=== PATIENT | male | born 1940 | race Caucasian/White ===

== ENCOUNTER 2023-09-10 14:33 | Inpatient (IN) ==
[2023-09-10] MEDS ORDERED: SODIUM CHLORIDE 1,000 ML IV STA (14:43)
--- NOTE | 2023-09-10 14:53 | ED.PDOC ---
General ED Provider: Dr. ORAL HERNANDEZ MD Chief Complaint: Altered Mental Status Stated Complaint: Decreased responsiveness, tremulous 83-year-old male presents emergency department for evaluation of altered mental status, shakiness. Patient resides in a long-term. custodial staff states that he started having uncontrollable movements earlier today. They called his primary provider who advised that they bring him to the ER for further evaluation. Patient was evaluated today for possible UTI. Was found to have leukocyte esterase and nitrite positive urinalysis with hematuria. In the interim the patient had decreased responsiveness and seem to be agitated. Apparently at baseline he is able to help stand for transfers and move about but apparently has dementia. At current time patient is unable to contribute to history. Time Seen by Provider: 09/10/23 14:36 Mode of Arrival: Ambulance Information Source: EMT Exam Limitations: Clinical condition and Altered mental status Primary Care Provider: EMMY FORBES Seen Within Last 72 Hours for Same Complaint By: PCP Nursing and Triage Documentation Reviewed and Agree: Yes Neurological Complaint Exam Altered Mental Status Complaint/Exam Current Mental Status: Agitation Onset: Gradual Symptoms Are: Still present Timing: Constant Initial Severity: Moderate Current Severity: Severe Eye Deviation Present: No Character: Reports Agitation Aggravating: Reports None Alleviating: Reports None Gag Reflex Present: Yes Focal Weakness: Present None Focal Sensory Loss: Present None Review of Systems Review Of Systems Constitutional: Reports Chills, Fever, Malaise and Weakness GI: Reports Abdominal pain : Reports Hematuria All Other Systems: Reviewed and Negative [facility] Medical History (Updated 09/10/23 @ 16:42 by ORAL HERNANDEZ MD) Hyperlipidemia E78.5 - Hyperlipidemia, unspecified (ICD-10) Atrial fibrillation I48.91 - Unspecified atrial fibrillation (ICD-10) Radiculopathy, cervical region M54.12 - Radiculopathy, cervical region (ICD-10) Social History Smoking and tobacco status: Former smoker Physical Exam Physical Exam Appearance: Reports Thin Ill-appearing: Moderate Pain Distress: Moderate Eyes: Reports EOMI ENT: Reports Dry mucosa Neck: Supple Respiratory: Reports Airway patent and Breath sounds clear Cardiovascular: Reports RRR and Pulses normal GI/: Reports Soft and Tender (generalized) Musculoskeletal: Reports ROM intact and No edema Skin: Reports Warm, Dry and Normal color Neurological: Reports Motor intact, Disoriented and Alert to pain Psychiatric: Reports Not Examined Interpretation EKG Interpretation EKG Interpretation By: ED Physician Time of EKG #1: 14:44 Rate: Normal Rhythm: Sinus Ectopy: None [place]: Left Interpretation: Difficult to obtain secondary to noisy baseline due to tremor Critical Care Note Critical Care Note Total Critical Care Time (mins): 35 Course Course 09/10/23 15:00 09/10/23 15:00 Orders, Labs, Meds: Lab Review 09/10/23 09/10/23 14:41 15:00 WBC 6.76 RBC 3.63 L Hgb 9.9 L Hct 31.1 L MCV 85.7 MCH 27.3 MCHC 31.8 RDW Coeff of [place] 14.2 Plt Count 318 Immature Gran % (Auto) 0.6 Neut % (Auto) 75.1 Lymph % (Auto) 15.8 [place] % (Auto) 8.1 Eos % (Auto) 0.1 Baso % (Auto) 0.3 Neut # (Auto) 5.1 Lymph # (Auto) 1.1 [place] # (Auto) 0.6 Eos # (Auto) 0.0 Baso # (Auto) 0.0 Immature Gran # (Auto) 0.0 Sodium 138.3 Potassium 3.34 L Chloride 106.0 Carbon Dioxide 27.4 Anion Gap 8.24 BUN 19.7 Creatinine 1.28 H Estimated GFR (MDRD) 53.00 BUN/Creatinine Ratio 15.39 Glucose 167.1 H Lactic Acid 1.26 Calcium 7.73 L Total Bilirubin 0.40 AST 29.0 ALT 26.5 Alkaline Phosphatase 50.4 L Troponin I 0.026 Total Protein 6.61 Albumin 3.32 L Globulin 3.29 Albumin/Globulin Ratio 1.00 Procalcitonin 0.16 H SARS CoV-2 RNA Rapid REYNALDO Negative Orders Category Date Time Status ADMIT OBSERVATION [PLACE PATIENT OBSERVATION] .TO ADMISSION 09/10/23 16:38 Active MEDSURG (NON-MONITORED BED) EKG-(ED ONLY) Stat CARDIO 09/10/23 14:41 Completed ED IV/MEDIPORT/POWERPORT .ONCE EMERGENCY 09/10/23 14:41 Active BLOOD CULTURE (ED ONLY) Stat LAB 09/10/23 15:06 Received CBC W/ AUTO DIFF Stat LAB 09/10/23 15:00 Completed CMP [COMPREHENSIVE METABOLIC PANEL] Stat LAB 09/10/23 15:00 Completed LACTIC ACID Stat LAB 09/10/23 15:00 Completed PROCALCITONIN Stat LAB 09/10/23 15:00 Completed SARS COV-2 RNA RAPID REYNALDO Stat LAB 09/10/23 14:41 Completed TROPONIN I Stat LAB 09/10/23 15:00 Completed UA [URINALYSIS C & S IF INDICATED] Stat LAB 09/10/23 14:41 Uncollected 0.9 % Sodium Chloride [Saline Flush] Meds 09/10/23 14:41 Active 1 syr IVF PRN PRN Acetaminophen [Tylenol] Meds 09/10/23 14:57 Discontinued 650 mg RC ONCE ONE Piperacillin Sodium/Tazobactam [Zosyn 3.375 gm] 3.375 Meds 09/10/23 15:38 Discontinued gm 0.9 % Sodium Chloride [Sodium Chloride 100Ml] 100 ml IV ONCE Sodium Chloride 0.9% [Sodium Chloride] 1,000 ml Meds 09/10/23 14:43 Discontinued IV BOLUS CHEST, 1V AP ONLY Stat RADS 09/10/23 14:[address] ABDOMEN/PELVIS WO CONTRAST Stat RADS 09/10/23 14:43 Completed Medications Generic Name Dose Route Start Last Admin Trade Name Freq PRN Reason Stop Dose Admin Sodium Chloride 1 syr 09/10/23 14:41 0.9% Sodium Chloride 10 Ml Disp.Syrin IVF PRN PRN To flush IV Discontinued Medications Generic Name Dose Route Start Last Admin Trade Name Freq PRN Reason Stop Dose Admin Acetaminophen 650 mg 09/10/23 14:57 09/10/23 15:21 Acetaminophen 650 Mg Supp.Rect RC 09/10/23 14:58 650 mg ONCE ONE Administration Sodium Chloride 1,000 mls @ 1,000 mls/hr 09/10/23 14:43 09/10/23 15:27 Sodium Chloride IV 09/10/23 15:42 Infused BOLUS STA Infusion Piperacillin Sod/Tazobactam 100 mls @ 200 mls/hr 09/10/23 15:38 09/10/23 16:19 Sod 3.375 gm/ Sodium Chloride IV 09/10/23 16:07 200 mls/hr ONCE ONE Administration Vital Signs: Temp Pulse Resp BP Pulse Ox 09/10/23 14:40 100.5 F H 88 22 H 109/63 97 Discharge Plan Discharge Patient Disposition: PLACED OBSERVATION Discharge Problem: Altered mental status, Acute metabolic encephalopathy, Acute UTI Did you review [place] [employer] for ALL controlled substances?: Not Applicable ED Provider: ORAL HERNANDEZ Physician Progress Note: 3:38 PM Patient had urinalysis performed today as an outpatient that showed leukocyte esterase, nitrite positive pyuria. Suspect that that could be contributing to some of his altered mental status and tremors. We will give a fluid bolus and start Zosyn. Current laboratory evaluation shows no leukocytosis, normal lactic acid. Remainder of labs pending. 4:[address] scan shows bladder wall thickening, bilateral hydronephrosis without evidence of ureterolithiasis. He does have emphysematous changes in the bladder. We did speak with the long-term staff to confirm that the patient did have straight catheterization to obtain the urinalysis earlier today. Suspect that that is the reason for his symptoms. However cannot exclude emphysematous cystitis. Given that he is still encephalopathic, we will admit to the hospital for further management. Patient was given IV fluids and Zosyn in the ER. Case discussed with hospitalist team and they accept admission for observation at this time. Will reassess tomorrow.
[2023-09-10] MEDS ORDERED: TYLENOL RC ONE (14:57)
[2023-09-10 15:10] LABS: BASOPHILS % (AUTO) 0.3 % (0.0-3.0); EOSINOPHILS % (AUTO) 0.1 % (0.0-7.0); HEMATOCRIT 31.1 % (42.0-52.0); HEMOGLOBIN 9.9 g/dl (14.0-18.0); IMMATURE GRANULOCYTE % (AUTO) 0.6 % (0.0-5.0); LYMPHOCYTES # (AUTO) 1.1 K/uL (0.60-3.4); LYMPHOCYTES % (AUTO) 15.8 (10.0-50.0); MEAN CORPUSCULAR HEMOGLOBIN 27.3 pg (27.0-31.0); MEAN CORPUSCULAR HGB CONC 31.8 (31.8-35.4); MEAN CORPUSCULAR VOLUME 85.7 fl (80.0-94.0); MONOCYTES # (AUTO) 0.6 K/uL (0.4-2.0); MONOCYTES % (AUTO) 8.1 (0-10); NEUTROPHILS # (AUTO) 5.1 K/ul (2.0-6.9); NEUTROPHILS % (AUTO) 75.1 % (42.2-75.2); PLATELET COUNT 318 10^3/uL (140-440); RDW COEFFICIENT OF VARIATION 14.2 % (11.6-14.8); RED BLOOD COUNT 3.63 10^6/ul (4.70-6.10); WHITE BLOOD COUNT 6.76 K/ul (4.2-10.2)
[2023-09-10 15:23] LABS: ALANINE AMINOTRANSFERASE 26.5 U/L (0-50); ALBUMIN 3.32 g/dL (3.5-5.0); ALKALINE PHOSPHATASE 50.4 U/L (56-119); BILIRUBIN,TOTAL 0.4 mg/dL (0.2-1.3); BLOOD UREA NITROGEN 19.7 mg/dL (9-20); CALCIUM 7.73 mg/dL (8.4-10.2); CARBON DIOXIDE 27.4 mmol/L (22-30.0); CREATININE 1.28 mg/dL (0.60-1.10); GLUCOSE 167.1 mg/dL (74-106); POTASSIUM 3.34 mmol/L (3.5-5.1); SODIUM 138.3 mmol/L (134.5-145); TOTAL PROTEIN 6.61 g/dL (6.3-8.2)
[2023-09-10 15:34] LABS: TROPONIN I 0.026 ng/ml (0.0000-0.120)
[2023-09-10] MEDS ORDERED: ZOSYN 3.375 GM 3.375 GM in SODIUM CHLORIDE 100ML 100 ML IV ONE (15:38)
[2023-09-10 16:12] LABS: SARS COV-2 RNA RAPID NAAT NEGATIVE (NEGATIVE)
--- NOTE | 2023-09-10 16:22 | DI ---
EXAM: CHEST RADIOGRAPH TECHNIQUE: Single frontal chest radiograph. COMPARISON: 07/10/2023 HISTORY: Altered mental status FINDINGS: The heart and mediastinum are stable. The lungs and pleural spaces are unchanged. No pneumothorax. No acute abnormality of the bones or soft tissues is identified. Status post right shoulder arthropla sty. IMPRESSION: No evidence of acute disease.
--- NOTE | 2023-09-10 16:28 | CT ---
EXAM: CT ABDOMEN AND PELVIS WITHOUT CONTRAST HISTORY: Abdominal and pelvic pain. TECHNIQUE: CT acquisition of the abdomen and pelvis from the lower thorax through the pelvis without IV contrast administration. 2-D coronal and sagittal reformatted images were obtained from the axial source images. Oral Contrast: None. CT Dose Reduction Techniques Performed: Yes. COMPARISON: None. FINDINGS: Lower Thorax: There is cardiomegaly. Liver: No mass. Normal morphology. Biliary: There has been cholecystectomy. Pancreas: No mass or evidence of pancreatitis. No duct dilation. Spleen: No mass. No splenomegaly. Adrenals: No mass. Kidneys/Ureters: There is moderate bilateral hydronephrosis. The ureters are dilated to the level of the urinary bladder. No stone or mass. GI Tract: No bowel dilation. No bowel wall thickening. Peritoneal Cavity: No ascites. Retroperitoneum: No mass or fluid collection. Lymph Nodes: No lymphadenopathy. Vasculature: No aortic or iliac aneurysm within limitations of noncontrast examination. Pelvis: The urinary bladder is thick-walled and trabeculated as well as moderately distended. There are small foci of gas superiorly and anteriorly. Difficult determine if these are within the urinary bladder wall or within the lumen from previous instrumentation. Normal appearance of the prostate. Bones/Soft Tissues: There has been previous posterior lumbar fixation surgery with interbody spacers. Visualized soft tissues are within normal limits. IMPRESSION: 1. Moderate bilateral hydroureternephrosis probably secondary to downstream abnormality involving th e urinary bladder. There is diffuse urinary bladder wall thickening with foci of gas in the anterior bladder wall. Correlate for recent instrumentation. The possibility of early emphysematous cystiti s cannot be excluded. All CT scans are performed using dose optimization techniques as appropriate to the performed exam an d include at least one of the following: Automated exposure control, adjustment of the mA and/or kV according t o size, and the use of iterative reconstruction technique.
[2023-09-10] MEDS ORDERED: TYLENOL PO PRN (16:54)
[2023-09-10] MEDS: SODIUM CHLORIDE 1,000 ML IV SCH (17:38)
[2023-09-10] MEDS ORDERED: MORPHINE 2 MG/ML SYRINGE IVP ONE (17:41)
[2023-09-10 17:48] VITALS: BMI 19.8
[2023-09-10] MEDS ORDERED: MORPHINE 2 MG/ML SYRINGE IVP PRN (18:44)
[2023-09-10] MEDS ORDERED: ZOFRAN 4 MG/2 ML IVP PRN (20:56)
[2023-09-10] MEDS: MORPHINE 2 MG/ML SYRINGE IVP PRN (21:51)
[2023-09-11] MEDS: MORPHINE 2 MG/ML SYRINGE IVP PRN ×5 (02:00→18:00)
[2023-09-11] MEDS: SODIUM CHLORIDE 1,000 ML IV SCH ×3 (02:27→22:53)
[2023-09-11 05:25] LABS: BASOPHILS % (AUTO) 0.2 % (0.0-3.0); HEMATOCRIT 31.9 % (42.0-52.0); HEMOGLOBIN 10.1 g/dl (14.0-18.0); IMMATURE GRANULOCYTE % (AUTO) 0.5 % (0.0-5.0); LYMPHOCYTES # (AUTO) 1.5 K/uL (0.60-3.4); MEAN CORPUSCULAR HEMOGLOBIN 27.1 pg (27.0-31.0); MEAN CORPUSCULAR HGB CONC 31.7 (31.8-35.4); MEAN CORPUSCULAR VOLUME 85.5 fl (80.0-94.0); MONOCYTES # (AUTO) 0.6 K/uL (0.4-2.0); MONOCYTES % (AUTO) 6.5 (0-10); NEUTROPHILS # (AUTO) 6.3 K/ul (2.0-6.9); NEUTROPHILS % (AUTO) 74.8 % (42.2-75.2); PLATELET COUNT 292 10^3/uL (140-440); RDW COEFFICIENT OF VARIATION 14.6 % (11.6-14.8); RED BLOOD COUNT 3.73 10^6/ul (4.70-6.10); WHITE BLOOD COUNT 8.44 K/ul (4.2-10.2)
[2023-09-11 05:44] LABS: ALANINE AMINOTRANSFERASE 29.4 U/L (0-50); ALBUMIN 3.59 g/dL (3.5-5.0); ALKALINE PHOSPHATASE 53.8 U/L (56-119); ASPARTATE AMINO TRANSFERASE 37.7 U/L (17-59); BILIRUBIN,TOTAL 0.69 mg/dL (0.2-1.3); BLOOD UREA NITROGEN 17.3 mg/dL (9-20); CALCIUM 8.16 mg/dL (8.4-10.2); CARBON DIOXIDE 25.7 mmol/L (22-30.0); CHLORIDE 110.9 mmol/L (98-107); CREATININE 1.22 mg/dL (0.60-1.10); GLUCOSE 126.2 mg/dL (74-106); POTASSIUM 3.18 mmol/L (3.5-5.1); SODIUM 142.9 mmol/L (134.5-145); TOTAL PROTEIN 7.12 g/dL (6.3-8.2)
[2023-09-11] MEDS: ROCEPHIN 1 GM/50 ML D5W 1 GM/50 ML BAG IV SCH (08:12)
[2023-09-11] MEDS ORDERED: POTASSIUM CHLORIDE 20 MEQ/100 ML PREMIX 40 MEQ/200 ML BAG IV ONE (08:18)
[2023-09-11] MEDS: ACETAMINOPHEN 1,000 MG/100 ML BAG IV PRN ×2 (09:06→18:06)
--- NOTE | 2023-09-11 10:40 | RS.OTCNOTE ---
OT Case Note Date of Note: 09/11/23 Title: OT Case Note Note: OT advised by Hospitalist to wait until tomorrow for consult.
--- NOTE | 2023-09-11 11:22 | PCM ---
Date of Service Date Seen by Provider: 09/11/23 Time Seen by Provider: 08:40 Admit Day/Time Admission Date: 09/10/23 Reason for Admission Chief Complaint: UTI, encephalopathy Hospital Provider Hospital Provider: STEVEN CUTLER, [facility] [place] Primary Care Physician Primary Care Physician: EMMY FORBES History of Present Illness History of Present Illness: 83 yo male presented to the ER by EMS from [facility] for AMS. Patient has baseline dementia and is unable to provide HPI or ROS. ER provider reports that nursing staff at the facility reported patient has been agitated and not hisself throughout the day. He was catheterized for a urinalysis but did not have the results back at that time. UA here revealed significant UTI. Patient also febrile at 101. Case Discussed With Case Discussed With: Patient's case was discussed with the ER Physicians, Dr. Peguero. [facility] Medical History Altered mental status, unspecified R41.82 - Altered mental status, unspecified (ICD-10) Repeated falls R29.6 - Repeated falls (ICD-10) Unspecified osteoarthritis, unspecified site M19.90 - Unspecified osteoarthritis, unspecified site (ICD-10) Gastro-esophageal reflux disease without esophagitis K21.9 - Gastro-esophageal reflux disease without esophagitis (ICD-10) Essential (primary) hypertension I10 - Essential (primary) hypertension (ICD-10) Cognitive communication deficit R41.841 - Cognitive communication deficit (ICD-10) Major depressive disorder F32.9 - Major depressive disorder, single episode, unspecified (ICD-10) Chronic systolic (congestive) heart failure I50.22 - Chronic systolic (congestive) heart failure (ICD-10) Chronic obstructive pulmonary disease J44.9 - Chronic obstructive pulmonary disease, unspecified (ICD-10) Retention of urine, unspecified R33.9 - Retention of urine, unspecified (ICD-10) Right temporomandibular joint disorder, 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 - Right temporomandibular joint disorder, unspecified (ICD-10) Irritable bowel syndrome without diarrhea K58.9 - Irritable bowel syndrome without diarrhea (ICD-10) Deviated nasal septum J34.2 - Deviated nasal septum (ICD-10) Impulsiveness R45.87 - Impulsiveness (ICD-10) Obstructive and reflux uropathy N13.9 - Obstructive and reflux uropathy, unspecified (ICD-10) 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 - Atherosclerotic heart disease of [place] coronary artery without angina pectoris (ICD-10) Nonrheumatic mitral (valve) insufficiency I34.0 - Nonrheumatic mitral (valve) insufficiency (ICD-10) Unspecified dementia, severe, with agitation F03.C11 - Unspecified dementia, severe, with agitation (ICD-10) Type 2 diabetes mellitus E11.9 - Type 2 diabetes mellitus without complications (ICD-10) Panlobular emphysema J43.1 - Panlobular emphysema (ICD-10) Hyperlipidemia E78.5 - Hyperlipidemia, unspecified (ICD-10) Atrial fibrillation I48.91 - Unspecified atrial fibrillation (ICD-10) Radiculopathy, cervical region M54.12 - Radiculopathy, cervical region (ICD-10) Surgical History Hx of cervical spine surgery Z98.890 - Other specified postprocedural states (ICD-10) H/O shoulder surgery Z98.890 - Other specified postprocedural states (ICD-10) Hx of mitral valve repair Z98.890 - Other specified postprocedural states (ICD-10) Family History Mother CHF (congestive heart failure) Social History Smoking and tobacco status: Former smoker Alcohol intake: former Allergies Allergies Allergy/AdvReac Type Severity Reaction Status Date / Time codeine AdvReac Verified 09/10/23 15:00 lidocaine AdvReac Verified 09/10/23 15:00 paraben AdvReac Verified 09/10/23 15:00 bleach AdvReac Uncoded 09/10/23 15:00 Current Medications Home Medications amiodarone 200 mg tablet 200 mg PO DAILY 07/10/23 [History Confirmed 09/10/23 Last Taken Unknown] apixaban 2.5 mg tablet (Eliquis) 5 mg PO BID 07/10/23 [History Confirmed 09/10/23 Last Taken Unknown] atorvastatin 10 mg tablet 10 mg PO DAILY 07/10/23 [History Confirmed 09/10/23 Last Taken Unknown] metoprolol succinate 50 mg tablet,extended release 24 hr 50 mg PO DAILY 07/10/23 [History Confirmed 09/10/23 Last Taken Unknown] pantoprazole 40 mg tablet,delayed release 40 mg PO QAM 07/10/23 [History Confirmed 09/10/23 Last Taken Unknown] oxycodone-acetaminophen 10 mg-325 mg tablet 1 tab PO TID PRN neck pain #90 tabs 08/04/23 [Rx Confirmed 09/10/23 Last Taken Unknown] buspirone 10 mg tablet 10 mg PO BID 09/10/23 [History Confirmed 09/10/23 Last Taken Unknown] dupilumab 300 mg/2 mL subcutaneous pen injector (FRM Study [employer]) 300 mg subcut DAILY 09/10/23 [History Confirmed 09/10/23 Last Taken Unknown] menthol 0.44 %-zinc oxide 20.6 % topical ointment (CalaSoothe) 1 applic topical 3-4XD PRN excoriation 09/10/23 [History Confirmed 09/10/23 Last Taken Unknown] nitroglycerin 0.4 mg sublingual tablet 0.4 mg sublingual Q5-15M PRN chest pain 09/10/23 [History Confirmed 09/10/23 Last Taken Unknown] Home Acetaminophen (Acetaminophen 325 Mg Tablet) 650 mg PO Q4H PRN PRN Reason: Mild Pain Sodium Chloride (Sodium Chloride) 1,000 mls @ 100 mls/hr IV .Q10H ROBBIE Last Admin: 09/11/23 02:27 Dose: 100 mls/hr CEFTRIAXONE/D5W 1 GM PREMIX (Rocephin 1 Gm/50 Ml D5w) 1 gm in 50 mls @ 100 mls/hr IV DAILY ROBBIE Stop: 09/14/23 08:59 Last Admin: 09/11/23 08:12 Dose: 100 mls/hr Acetaminophen (Acetaminophen) 1,000 mg in 100 mls @ 400 mls/hr IV Q6HR PRN PRN Reason: Pain Last Admin: 09/11/23 09:06 Dose: 400 mls/hr Potassium Chloride (Potassium Chloride 20 Meq/100 Ml Premix) 40 meq in 200 mls @ 50 mls/hr IV ONCE ONE Stop: 09/11/23 12:17 Last Admin: 09/11/23 09:15 Dose: 50 mls/hr Morphine Sulfate (Morphine Sulfate 2 Mg/Ml Syringe) 2 mg IVP Q4H PRN PRN Reason: Pain Last Admin: 09/11/23 10:00 Dose: 2 mg Ondansetron HCl (Ondansetron Hcl/Pf 4 Mg/2 Ml Sdv) 4 mg IVP Q6H PRN PRN Reason: Nausea / Vomiting Sodium Chloride (0.9% Sodium Chloride 10 Ml Disp.Syrin) 1 syr IVF PRN PRN PRN Reason: To flush IV Discontinued Medications Acetaminophen (Acetaminophen 650 Mg Supp.Rect) 650 mg RC ONCE ONE Stop: 09/10/23 14:58 Last Admin: 09/10/23 15:21 Dose: 650 mg Sodium Chloride (Sodium Chloride) 1,000 mls @ 1,000 mls/hr IV BOLUS STA Stop: 09/10/23 15:42 Last Infusion: 09/10/23 15:27 Dose: Infused Piperacillin Sod/Tazobactam (Sod 3.375 gm/ Sodium Chloride) 100 mls @ 200 mls/hr IV ONCE ONE Stop: 09/10/23 16:07 Last Admin: 09/10/23 16:19 Dose: 200 mls/hr Morphine Sulfate (Morphine Sulfate 2 Mg/Ml Syringe) 2 mg IVP ONCE ONE Stop: 09/10/23 17:42 Last Admin: 09/10/23 18:03 Dose: 2 mg Morphine Sulfate (Morphine Sulfate 2 Mg/Ml Syringe) 2 mg IVP ONCE PRN PRN Reason: Pain Physical examination Most Recent Vital Signs: Most Recent Vital Signs Temperature 100.6 F H 09/11/23 10:00 Temperature Source Axillary 09/11/23 10:00 Temperature Source Infrared 09/10/23 14:40 Pulse Rate 96 09/11/23 10:00 Respiratory Rate 20 09/11/23 10:00 Blood Pressure 119/64 09/11/23 10:00 Blood Pressure Mean 82 09/11/23 10:00 Blood Pressure Right Arm 112/66 09/10/23 17:10 Blood Pressure Location Left Arm 09/11/23 10:00 Blood Pressure Position Supine 09/11/23 10:00 O2 Sat by Pulse Oximetry 95 09/11/23 10:00 Oxygen Delivery Method Room Air 09/11/23 10:00 Height 5 ft 10.5 in 09/11/23 07:01 Weight 153 lb 09/11/23 07:01 Telemetry Type Remote Telemetry 09/11/23 07:00 Telemetry Monitoring Continues 09/11/23 07:00 Telemetry Heart Rate 96 09/11/23 07:00 Telemetry SPO2 93 09/11/23 07:00 EKG PA Interval 0.20 09/11/23 07:00 EKG QRS Interval 0.12 H 09/11/23 07:00 Telemetry Strip Reading SR with BBB 09/11/23 07:00 Appearance: Positive Ill-Appearing and Thin HEENT: Positive Normocephalic and PERRLA Neck: Positive Supple and Midline Trachea Chest/Lungs: Positive Symmetrical With Equal Breath Sounds, Clear to Auscultation Bilaterally and Good Air Movement all 4 Lung [place] Heart: Positive RRR and Pulses Normal GI/: Positive Soft, Bowel Sounds Normal, No Distention and Tender Musculoskeletal: Positive Not Examined Extremities: Positive Intact Peripheral Pulses and Stable Joints Without Laxity Neurological: Positive Motor intact, Disorinted and Other (lethargic, unresponsive to verbal stimuli, responsive to painful stimuli) Labs This Visit Labs This Visit: Labs This Visit 09/10/23 09/10/23 09/11/23 14:41 15:00 05:20 WBC 6.76 8.44 RBC 3.63 L 3.73 L Hgb 9.9 L 10.1 L Hct 31.1 L 31.9 L MCV 85.7 85.5 MCH 27.3 27.1 MCHC 31.8 31.7 L RDW Coeff of Temi 14.2 14.6 Plt Count 318 292 Immature Gran % (Auto) 0.6 0.5 Neut % (Auto) 75.1 74.8 Lymph % (Auto) 15.8 18.0 [place] % (Auto) 8.1 6.5 Eos % (Auto) 0.1 0.0 Baso % (Auto) 0.3 0.2 Neut # (Auto) 5.1 6.3 Lymph # (Auto) 1.1 1.5 [place] # (Auto) 0.6 0.6 Eos # (Auto) 0.0 0.0 Baso # (Auto) 0.0 0.0 Immature Gran # (Auto) 0.0 0.0 Sodium 138.3 142.9 Potassium 3.34 L 3.18 L Chloride 106.0 110.9 H Carbon Dioxide 27.4 25.7 Anion Gap 8.24 9.48 BUN 19.7 17.3 Creatinine 1.28 H 1.22 H Estimated GFR (MDRD) 53.00 56.00 BUN/Creatinine Ratio 15.39 14.18 Glucose 167.1 H 126.2 H Lactic Acid 1.26 Calcium 7.73 L 8.16 L Total Bilirubin 0.40 0.69 AST 29.0 37.7 ALT 26.5 29.4 Alkaline Phosphatase 50.4 L 53.8 L Troponin I 0.026 Total Protein 6.61 7.12 Albumin 3.32 L 3.59 Globulin 3.29 3.53 Albumin/Globulin Ratio 1.00 1.01 Procalcitonin 0.16 H SARS CoV-2 RNA Rapid REYNALDO Negative Imaging Imaging: EXAM: CT ABDOMEN AND PELVIS WITHOUT CONTRAST IMPRESSION: 1. Moderate bilateral hydroureternephrosis probably secondary to downstream abnormality involving the urinary bladder. There is diffuse urinary bladder wall thickening with foci of gas in the anterior bladder wall. Correlate for recent instrumentation. The possibility of early emphysematous cystitis cannot be excluded. Review Statement Review Statement: I have independently reviewed and interpreted the labs/EKGs/imaging that were ordered by the ER provider. I have reviewed all outside records that are available currently in our EMR including imaging/notes/labs from previous visits. Plan Plan: 1. Acute Pyelonephritis with moderate hydronephrosis - rocephin 1G Q24H, morphine Q4H prn for pain, IV tylenol Q6H prn for fever, urine culture pending, NS@100mL/hr 2. Acute metabolic encephalopathy in setting of UTI - avoid neurologically altering agents if able, NPO due to this, accuchecks Q6H - will adjust fluids if glucose drops, monitor for worsening 3. Hypokalemia - replace and monitor 4. Hypertension - chronic, hold meds due to mental status and hypotension 5. Afib - chronic, stable, unable to give home meds due to mental status DVT Prophylaxis: Lovenox Time Spent: Greater than 80 minutes spent with patient, 50% of the time spent with this patient was devoted to counseling and coordination of care. [facility] Plannin minutes spent discussing advance care planning. Disposition: Admit to: Med/Surg Inpatient DNR Discussed Plan of Care with Dr. Ayana Chu. Medications Medication Orders: Medications Ordered Category Date Time Status 0.9 % Sodium Chloride [Saline Flush] Meds 09/10/23 14:41 Active 1 syr IVF PRN PRN Acetaminophen Meds 09/11/23 08:17 Active 1,000 mg in 100 ml IV Q6HR Acetaminophen [Tylenol] Meds 09/10/23 16:54 Active 650 mg PO Q4H PRN Ceftriaxone/D5w 1 gm Premix [Rocephin 1 gm/50 ml D5w] Meds 09/11/23 09:00 Active 1 gm in 50 ml IV DAILY Morphine Sulfate [Morphine 2 mg/ml Syringe] Meds 09/10/23 20:56 Active 2 mg IVP Q4H PRN Ondansetron HCl/Pf [Zofran 4 mg/2 ml] Meds 09/10/23 20:56 Active 4 mg IVP Q6H PRN Potassium Chloride [Potassium Chloride 20 Meq/100 ml Meds 09/11/23 08:18 Active Premix] 40 meq in 200 ml IV ONCE Sodium Chloride 0.9% [Sodium Chloride] 1,000 ml Meds 09/10/23 17:00 Active IV 100 mls/hr
[2023-09-11] MEDS ORDERED: ATIVAN IVP ONE (14:46)
[2023-09-12] MEDS: MORPHINE 2 MG/ML SYRINGE IVP PRN ×3 (01:29→09:39)
[2023-09-12 05:14] LABS: BASOPHILS % (AUTO) 0.5 % (0.0-3.0); EOSINOPHILS # (AUTO) 0.1 K/ul (0.0-0.7); EOSINOPHILS % (AUTO) 1.2 % (0.0-7.0); HEMATOCRIT 30.6 % (42.0-52.0); HEMOGLOBIN 9.4 g/dl (14.0-18.0); IMMATURE GRANULOCYTE % (AUTO) 0.5 % (0.0-5.0); LYMPHOCYTES % (AUTO) 16.9 (10.0-50.0); MEAN CORPUSCULAR HGB CONC 30.7 (31.8-35.4); MEAN CORPUSCULAR VOLUME 87.9 fl (80.0-94.0); MONOCYTES # (AUTO) 0.3 K/uL (0.4-2.0); MONOCYTES % (AUTO) 4.6 (0-10); NEUTROPHILS # (AUTO) 4.6 K/ul (2.0-6.9); NEUTROPHILS % (AUTO) 76.3 % (42.2-75.2); PLATELET COUNT 269 10^3/uL (140-440); RDW COEFFICIENT OF VARIATION 14.7 % (11.6-14.8); RED BLOOD COUNT 3.48 10^6/ul (4.70-6.10); WHITE BLOOD COUNT 6.03 K/ul (4.2-10.2)
[2023-09-12 05:32] LABS: ALANINE AMINOTRANSFERASE 31.3 U/L (0-50); ALBUMIN 3.18 g/dL (3.5-5.0); ALKALINE PHOSPHATASE 52.7 U/L (56-119); BILIRUBIN,TOTAL 0.52 mg/dL (0.2-1.3); BLOOD UREA NITROGEN 16.7 mg/dL (9-20); CALCIUM 8.39 mg/dL (8.4-10.2); CARBON DIOXIDE 24.8 mmol/L (22-30.0); CHLORIDE 117.7 mmol/L (98-107); CREATININE 1.08 mg/dL (0.60-1.10); GLUCOSE 97.5 mg/dL (74-106); POTASSIUM 3.4 mmol/L (3.5-5.1); SODIUM 148.7 mmol/L (134.5-145); TOTAL PROTEIN 6.53 g/dL (6.3-8.2)
[2023-09-12] MEDS: ROCEPHIN 1 GM/50 ML D5W 1 GM/50 ML BAG IV SCH (08:06)
[2023-09-12] MEDS: LOVENOX SUBCUT SCH (08:09)
--- NOTE | 2023-09-12 11:35 | PCM.PROG ---
Date/Time Seen Date Seen by Provider: 09/12/23 Time Seen by Provider: 09:15 Provider [facility] Chief Complaint Chief Complaint: UTI, encephalopathy Subjective Subjective: Alert and attempting to talk to this provider today. Much improved today. Last fever at 1800 yesterday. Nursing staff going to attempt to feed patient. Objective Appearance: Positive No Apparent Distress Chest/Lungs: Positive Symmetrical With Equal Breath Sounds, Clear to Auscultation Bilaterally and Good Air Movement all 4 Lung [place] Heart: Positive RRR and Pulses Normal GI/: Positive Soft, Nontender, Bowel Sounds Normal and No Distention Musculoskeletal: Positive Not Examined Neurological: Positive Motor intact, Alert and Disorinted Vital Signs Vital Signs: Vital Signs: Last 24 Hours 09/11/23 12:00 09/11/23 13:00 09/11/23 16:00 Temperature 99.1 F 98.7 F Temperature Source Axillary Axillary Pulse Rate 88 86 Pulse Rate [Apical] Respiratory Rate 21 H 22 H Blood Pressure 114/75 123/76 Blood Pressure Mean 88 91 Blood Pressure Location Left Arm Left Arm Blood Pressure Position Supine Supine O2 Sat by Pulse Oximetry 95 95 Oxygen Delivery Method Room Air Room Air Telemetry Type Remote Telemetry Telemetry Monitoring Continues Telemetry Heart Rate 87 Telemetry SPO2 93 EKG MA Interval 0.20 EKG QRS Interval 0.10 Telemetry Strip Reading NSR 09/11/23 18:00 09/11/23 19:00 09/11/23 20:00 Temperature 100.2 F 99.2 F Temperature Source Oral Temporal Artery Scan Pulse Rate 101 H 92 Pulse Rate [Apical] Respiratory Rate 24 H 24 H Blood Pressure 143/77 H 105/64 Blood Pressure Mean 99 77 Blood Pressure Location Left Arm Left Arm Blood Pressure Position Supine Supine O2 Sat by Pulse Oximetry 95 94 L Oxygen Delivery Method Room Air Room Air Telemetry Type Remote Telemetry Telemetry Monitoring Continues Telemetry Heart Rate 92 Telemetry SPO2 93 EKG MA Interval 0.20 EKG QRS Interval 0.09 Telemetry Strip Reading SR 09/11/23 20:00 09/11/23 21:47 09/12/23 00:00 Temperature 98.7 F 99.1 F Temperature Source Temporal Artery Scan Tympanic Pulse Rate 83 90 Pulse Rate [Apical] 94 Respiratory Rate 30 H 24 H 24 H Blood Pressure 93/62 150/92 H Blood Pressure Mean 72 111 Blood Pressure Location Left Arm Left Arm Blood Pressure Position Supine O2 Sat by Pulse Oximetry 96 96 Oxygen Delivery Method Room Air Room Air Room Air Telemetry Type Telemetry Monitoring Telemetry Heart Rate Telemetry SPO2 EKG MA Interval EKG QRS Interval Telemetry Strip Reading 09/12/23 01:00 09/12/23 02:00 09/12/23 03:59 Temperature 98.1 F 98.3 F Temperature Source Tympanic Tympanic Pulse Rate 86 86 Pulse Rate [Apical] Respiratory Rate 24 H 24 H Blood Pressure 142/78 H 154/87 H Blood Pressure Mean 99 109 Blood Pressure Location Right Calf Right Calf Blood Pressure Position Supine Supine O2 Sat by Pulse Oximetry 97 93 L Oxygen Delivery Method Room Air Room Air Telemetry Type Remote Telemetry Telemetry Monitoring Continues Telemetry Heart Rate 85 Telemetry SPO2 93 EKG MA Interval 0.20 EKG QRS Interval 0.09 Telemetry Strip Reading SR 09/12/23 05:41 09/12/23 07:00 09/12/23 08:00 Temperature 98.4 F 98.4 F Temperature Source Tympanic Axillary Pulse Rate 86 83 Pulse Rate [Apical] Respiratory Rate 24 H 18 Blood Pressure 146/88 H 130/82 Blood Pressure Mean 107 98 Blood Pressure Location Right Calf Left Arm Blood Pressure Position Supine Supine O2 Sat by Pulse Oximetry 95 96 Oxygen Delivery Method Room Air Room Air Telemetry Type Remote Telemetry Telemetry Monitoring Continues Telemetry Heart Rate 83 Telemetry SPO2 EKG MA Interval 0.19 EKG QRS Interval 0.12 H Telemetry Strip Reading Sr with BBB 09/12/23 08:00 09/12/23 10:00 Temperature 98.9 F Temperature Source Axillary Pulse Rate 84 Pulse Rate [Apical] 83 Respiratory Rate 26 H 23 H Blood Pressure 128/71 Blood Pressure Mean 90 Blood Pressure Location Left Arm Blood Pressure Position Supine O2 Sat by Pulse Oximetry 93 L Oxygen Delivery Method Room Air Room Air Telemetry Type Telemetry Monitoring Telemetry Heart Rate Telemetry SPO2 EKG MA Interval EKG QRS Interval Telemetry Strip Reading Lab Results Lab Results: Lab Results: Last 24 Hours 09/12/23 05:09 WBC 6.03 RBC 3.48 L Hgb 9.4 L Hct 30.6 L MCV 87.9 MCH 27.0 MCHC 30.7 L RDW Coeff of Temi 14.7 Plt Count 269 Immature Gran % (Auto) 0.5 Neut % (Auto) 76.3 H Lymph % (Auto) 16.9 Sharp % (Auto) 4.6 Eos % (Auto) 1.2 Baso % (Auto) 0.5 Neut # (Auto) 4.6 Lymph # (Auto) 1.0 Sharp # (Auto) 0.3 L Eos # (Auto) 0.1 Baso # (Auto) 0.0 Immature Gran # (Auto) 0.0 Sodium 148.7 H Potassium 3.40 L Chloride 117.7 H Carbon Dioxide 24.8 Anion Gap 9.60 BUN 16.7 Creatinine 1.08 Estimated GFR (MDRD) 65.00 BUN/Creatinine Ratio 15.46 Glucose 97.5 Calcium 8.39 L Total Bilirubin 0.52 AST 52.0 ALT 31.3 Alkaline Phosphatase 52.7 L Total Protein 6.53 Albumin 3.18 L Globulin 3.35 Albumin/Globulin Ratio 0.94 Additional Comments Additional Comments: I have independently reviewed and interpreted the labs/EKGs/imaging ordered during this hospital stay. I have reviewed outside records that are available in our EMR that pertain to medical stay including imaging/notes/labs from previous visits. Active Medications Active Medications: Medications Generic Name Dose Route Start Last Admin Trade Name Freq PRN Reason Stop Dose Admin Acetaminophen 650 mg 09/10/23 16:54 Acetaminophen 325 Mg Tablet PO Q4H PRN Mild Pain Enoxaparin Sodium 30 mg 09/12/23 09:00 09/12/23 08:09 Enoxaparin Sodium 30 Mg/0.3 Ml Syr SUBCUT 30 mg DAILY ROBBIE Administration CEFTRIAXONE/D5W 1 GM PREMIX 1 gm in 50 mls @ 100 mls/hr 09/11/23 09:00 09/12/23 08:06 Rocephin 1 Gm/50 Ml D5w IV 09/14/23 08:59 100 mls/hr DAILY ROBBIE Administration Acetaminophen 1,000 mg in 100 mls @ 400 mls/hr 09/11/23 08:17 09/11/23 18:06 Acetaminophen IV 400 mls/hr Q6HR PRN Administration Pain Morphine Sulfate 2 mg 09/10/23 20:56 09/12/23 09:39 Morphine Sulfate 2 Mg/Ml Syringe IVP 2 mg Q4H PRN Administration Pain Ondansetron HCl 4 mg 09/10/23 20:56 Ondansetron Hcl/Pf 4 Mg/2 Ml Sdv IVP Q6H PRN Nausea / Vomiting Sodium Chloride 1 syr 09/10/23 14:41 0.9% Sodium Chloride 10 Ml Disp.Syrin IVF PRN PRN To flush IV Plan Plan: 1. Acute Pyelonephritis with moderate hydronephrosis - rocephin 1G Q24H, morphine Q4H prn for pain, IV tylenol Q6H prn for fever, urine culture revealed proteus mirabilis, stopped IVF today 2. Acute metabolic encephalopathy in setting of UTI - Improving, avoid neurologically altering agents if able, monitor for worsening 3. Hypokalemia - replace and monitor 4. Hypertension - chronic, hold meds due to mental status and hypotension 5. Afib - chronic, stable, unable to give home meds due to mental status DVT Prophylaxis: Lovenox Review Statement Review Statement: I have personally discussed and reviewed the patient's visit/currently labs/imaging/decision making with Dr. Chu, my supervising attending. Greater that 50 minutes spent with patient, 50% of the time spent with this patient was devoted to counseling and coordination of care.
[2023-09-12] MEDS: NYSTOP POWDER TP SCH (21:13)
[2023-09-13 06:52] LABS: ALANINE AMINOTRANSFERASE 40.3 U/L (0-50); ALBUMIN 3.61 g/dL (3.5-5.0); ALKALINE PHOSPHATASE 69.4 U/L (56-119); ASPARTATE AMINO TRANSFERASE 71.6 U/L (17-59); BILIRUBIN,TOTAL 0.63 mg/dL (0.2-1.3); BLOOD UREA NITROGEN 21.9 mg/dL (9-20); CALCIUM 8.75 mg/dL (8.4-10.2); CARBON DIOXIDE 23.1 mmol/L (22-30.0); CHLORIDE 121.4 mmol/L (98-107); CREATININE 1.27 mg/dL (0.60-1.10); GLUCOSE 100.7 mg/dL (74-106); POTASSIUM 2.92 mmol/L (3.5-5.1); SODIUM 154.7 mmol/L (134.5-145); TOTAL PROTEIN 7.44 g/dL (6.3-8.2)
[2023-09-13 06:57] LABS: BASOPHILS % (AUTO) 0.2 % (0.0-3.0); EOSINOPHILS # (AUTO) 0.1 K/ul (0.0-0.7); EOSINOPHILS % (AUTO) 0.8 % (0.0-7.0); HEMATOCRIT 35.9 % (42.0-52.0); HEMOGLOBIN 11.1 g/dl (14.0-18.0); IMMATURE GRANULOCYTE % (AUTO) 0.3 % (0.0-5.0); LYMPHOCYTES # (AUTO) 1.2 K/uL (0.60-3.4); LYMPHOCYTES % (AUTO) 19.7 (10.0-50.0); MEAN CORPUSCULAR HEMOGLOBIN 27.3 pg (27.0-31.0); MEAN CORPUSCULAR HGB CONC 30.9 (31.8-35.4); MEAN CORPUSCULAR VOLUME 88.4 fl (80.0-94.0); MONOCYTES # (AUTO) 0.3 K/uL (0.4-2.0); MONOCYTES % (AUTO) 4.3 (0-10); NEUTROPHILS # (AUTO) 4.6 K/ul (2.0-6.9); NEUTROPHILS % (AUTO) 74.7 % (42.2-75.2); PLATELET COUNT 334 10^3/uL (140-440); RDW COEFFICIENT OF VARIATION 14.4 % (11.6-14.8); RED BLOOD COUNT 4.06 10^6/ul (4.70-6.10)
[2023-09-13] MEDS: NYSTOP POWDER TP SCH ×3 (07:45→16:57)
[2023-09-13] MEDS ORDERED: POTASSIUM CHLORIDE 20 MEQ/100 ML PREMIX 40 MEQ/200 ML BAG IV ONE (08:22)
[2023-09-13] MEDS ORDERED: POTASSIUM CHL 10% ORAL SOL PO ONE ×2 (08:22→12:00)
[2023-09-13] MEDS ORDERED: DEXTROSE 5%-WATER IV SOLN 1,000 ML IV SCH (08:30)
[2023-09-13] MEDS: LOVENOX SUBCUT SCH (09:11)
[2023-09-13] MEDS ORDERED: BENADRYL 25 MG in SODIUM CHLORIDE 100ML 100 ML IV STA (09:26)
[2023-09-13] MEDS: ROCEPHIN 1 GM/50 ML D5W 1 GM/50 ML BAG IV SCH (09:30)
[2023-09-13] MEDS ORDERED: KEFLEX SUSPENSION PO SCH (12:00)
--- NOTE | 2023-09-13 12:02 | PCM.PROG ---
Date/Time Seen Date Seen by Provider: 09/13/23 Time Seen by Provider: 09:15 Provider Provider: STEVEN CUTLER, [facility] Chief Complaint Chief Complaint: UTI, encephalopathy Subjective Subjective: No fevers. Mental status much improved. Attempted to speak. Has been itching legs and arms and has diffuse rash. Unknown source. Only allergies to codeine, lidocaine, bleach, and paraben. Only new medication to regimen is Rocephin. Objective Appearance: Positive No Apparent Distress and Ill-Appearing Chest/Lungs: Positive Symmetrical With Equal Breath Sounds, Clear to Auscultation Bilaterally and Good Air Movement all 4 Lung [place] Heart: Positive RRR and Pulses Normal GI/: Positive Soft, Nontender, Bowel Sounds Normal and No Distention Musculoskeletal: Positive Not Examined Neurological: Positive Sensation Intact, Motor intact, Alert and Disorinted Additional Findings: Diffuse rash to arms legs and chest. L leg greater than right on lateral upper thigh area Vital Signs Vital Signs: Vital Signs: Last 24 Hours 09/12/23 13:00 09/12/23 14:00 09/12/23 19:00 Temperature 99.2 F Temperature Source Oral Pulse Rate 91 Pulse Rate [Apical] Respiratory Rate 23 H Blood Pressure 132/76 Blood Pressure Mean 94 Blood Pressure Location Left Arm Blood Pressure Position Supine O2 Sat by Pulse Oximetry 92 L Oxygen Delivery Method Room Air Telemetry Type Remote Telemetry Remote Telemetry Telemetry Monitoring Continues Continues Telemetry Heart Rate 87 89 Telemetry SPO2 89 L 93 EKG VA Interval 0.19 0.19 EKG QRS Interval 0.08 0.07 Telemetry Strip Reading NSR SR 09/12/23 20:00 09/12/23 21:33 09/13/23 01:00 Temperature 97.8 F Temperature Source Temporal Artery Scan Pulse Rate 88 Pulse Rate [Apical] 83 Respiratory Rate 22 H 20 Blood Pressure 148/82 H Blood Pressure Mean 104 Blood Pressure Location Right Arm Blood Pressure Position Supine O2 Sat by Pulse Oximetry 97 Oxygen Delivery Method Room Air Room Air Telemetry Type Remote Telemetry Telemetry Monitoring Continues Telemetry Heart Rate 87 Telemetry SPO2 EKG VA Interval 0.16 EKG QRS Interval 0.07 Telemetry Strip Reading SR 09/13/23 05:54 09/13/23 07:00 Temperature 97.7 F Temperature Source Temporal Artery Scan Pulse Rate 97 Pulse Rate [Apical] Respiratory Rate 20 Blood Pressure 134/85 Blood Pressure Mean 101 Blood Pressure Location Left Arm Blood Pressure Position Supine O2 Sat by Pulse Oximetry 94 L Oxygen Delivery Method Room Air Telemetry Type Remote Telemetry Telemetry Monitoring Continues Telemetry Heart Rate 83 Telemetry SPO2 EKG VA Interval 0.14 EKG QRS Interval 0.08 Telemetry Strip Reading SR Lab Results Lab Results: Lab Results: Last 24 Hours 09/13/23 06:15 WBC 6.10 RBC 4.06 L Hgb 11.1 L Hct 35.9 L MCV 88.4 MCH 27.3 MCHC 30.9 L RDW Coeff of Temi 14.4 Plt Count 334 Immature Gran % (Auto) 0.3 Neut % (Auto) 74.7 Lymph % (Auto) 19.7 [place] % (Auto) 4.3 Eos % (Auto) 0.8 Baso % (Auto) 0.2 Neut # (Auto) 4.6 Lymph # (Auto) 1.2 [place] # (Auto) 0.3 L Eos # (Auto) 0.1 Baso # (Auto) 0.0 Immature Gran # (Auto) 0.0 Sodium 154.7 H Potassium 2.92 L Chloride 121.4 H Carbon Dioxide 23.1 Anion Gap 13.12 BUN 21.9 H Creatinine 1.27 H Estimated GFR (MDRD) 54.00 BUN/Creatinine Ratio 17.24 Glucose 100.7 Calcium 8.75 Total Bilirubin 0.63 AST 71.6 H ALT 40.3 Alkaline Phosphatase 69.4 Total Protein 7.44 Albumin 3.61 Globulin 3.83 Albumin/Globulin Ratio 0.94 Additional Comments Additional Comments: I have independently reviewed and interpreted the labs/EKGs/imaging ordered during this hospital stay. I have reviewed outside records that are available in our EMR that pertain to medical stay including imaging/notes/labs from previous visits. Active Medications Active Medications: Medications Generic Name Dose Route Start Last Admin Trade Name Freq PRN Reason Stop Dose Admin Acetaminophen 650 mg 09/10/23 16:54 Acetaminophen 325 Mg Tablet PO Q4H PRN Mild Pain Cephalexin 500 mg 09/13/23 12:00 Cephalexin 250 Mg/5 Ml Susp PO 09/18/23 06:01 Q6HR ROBBIE Enoxaparin Sodium 30 mg 09/12/23 09:00 09/13/23 09:11 Enoxaparin Sodium 30 Mg/0.3 Ml Syr SUBCUT 30 mg DAILY ROBBIE Administration Acetaminophen 1,000 mg in 100 mls @ 400 mls/hr 09/11/23 08:17 09/11/23 18:06 Acetaminophen IV 400 mls/hr Q6HR PRN Administration Pain Potassium Chloride 40 meq in 200 mls @ 50 mls/hr 09/13/23 08:22 09/13/23 10:29 Potassium Chloride 20 Meq/100 Ml Premix IV 09/13/23 12:21 50 mls/hr ONCE ONE Administration Morphine Sulfate 2 mg 09/10/23 20:56 09/12/23 09:39 Morphine Sulfate 2 Mg/Ml Syringe IVP 2 mg Q4H PRN Administration Pain Nystatin 1 applic 09/12/23 21:00 09/13/23 07:45 Nystatin 15 Gm Powder TP 1 applic TID ROBBIE Administration Ondansetron HCl 4 mg 09/10/23 20:56 Ondansetron Hcl/Pf 4 Mg/2 Ml Sdv IVP Q6H PRN Nausea / Vomiting Potassium Chloride 40 meq 09/13/23 12:00 09/13/23 11:57 Potassium Chloride 40 Meq/30 Ml Cup PO 09/13/23 12:01 40 meq ONCE ONE Administration Sodium Chloride 1 syr 09/10/23 14:41 0.9% Sodium Chloride 10 Ml Disp.Syrin IVF PRN PRN To flush IV Sodium Chloride 1 syr 09/12/23 21:00 09/13/23 05:49 0.9% Sodium Chloride 10 Ml Disp.Syrin IVF 1 syr Q8HR ROBBIE Administration Plan Plan: 1. Acute Pyelonephritis with moderate hydronephrosis - morphine Q4H prn for pain, IV tylenol Q6H prn for fever, urine culture revealed proteus mirabilis, stopped rocephin - started keflex PO 2. Hypernatremia - started on D5W@100mL/hr, will repeat sodium this afternoon to monitor improvement, telemetry 3. Acute metabolic encephalopathy in setting of UTI - Improving, avoid neurologically altering agents if able, monitor for worsening 3. Hypokalemia - replace and monitor 4. Hypertension - chronic, hold meds due to mental status and hypotension 5. Afib - chronic, stable, unable to give home meds due to mental status Review Statement Review Statement: I have personally discussed and reviewed the patient's visit/currently labs/imaging/decision making with Dr. Chu, my supervising attending. Greater that 50 minutes spent with patient, 50% of the time spent with this patient was devoted to counseling and coordination of care.
[2023-09-13] MEDS: KEFLEX SUSPENSION PO SCH ×2 (12:39→17:11)
[2023-09-13] MEDS ORDERED: KEFLEX PO SCH (13:00)
[2023-09-13] MEDS ORDERED: VISTARIL INJ IM ONE (13:09)
[2023-09-13] MEDS ORDERED: BENADRYL IVP STA (15:02)
[2023-09-13] MEDS ORDERED: SOLU-MEDROL 125 MG IVP ONE (15:02)
[2023-09-13] MEDS ORDERED: PEPCID IVP ONE (15:02)
[2023-09-13 15:33] LABS: BLOOD UREA NITROGEN 23.3 mg/dL (9-20); CALCIUM 8.58 mg/dL (8.4-10.2); CARBON DIOXIDE 21.7 mmol/L (22-30.0); CREATININE 1.38 mg/dL (0.60-1.10); GLUCOSE 127.4 mg/dL (74-106); POTASSIUM 3.99 mmol/L (3.5-5.1); SODIUM 156.5 mmol/L (134.5-145)
[2023-09-13 15:47] LABS: CHLORIDE 127.4 mmol/L (98-107)
[2023-09-13] MEDS: DEXTROSE 5%-WATER IV SOLN 1,000 ML IV SCH (16:09)
--- NOTE | 2023-09-13 16:33 | RS.BEDDYS ---
Subjective Number of treatment sessions: 1 Date of Evaluation: 09/13/23 Date of Onset/Injury/Change in Status: 09/10/23 Surgery Performed?: No Diagnosis: UTI Current Diet: Following [employer] initial evaluation it is recommended for Pt. to receive medications crushed in applesauce, full liquid or pureed solid consistency and thin liquids Current Subjective/complaints:: Pt. is very agitated and restless. Unable to follow simple commands. Unable to swallow pills in whole form Medical History Comments:: Hx of Dementia and UTI Patient's Goals: Pt. unable to answer. General Information General Denture Type: Full- Upper (Ill fitted and [employer] has recommended Pt. not wear at current time.) Ability to Follow Directions: Poor Is Patient able to Repeat Directions?: No Oral Expression Ability: Mild Impairment Voice Voice Quality: Normal Voice Pitch: Normal Voice Loudness: Normal Oral-Facial Assessment Face Facial Symmetry: Symmetrical Facial Movement: Involuntary Dental/Labial Mouth Occlusion: Normal Teeth Characteristics: Missing and Dental Appliance Lip Protrusion: Normal Lip Retraction: Normal Lingual Protrusion: Discoordination Retraction: Discoordination Tip Lateralization: Discoordination Repeated Tip Lateralization: Discoordination Tip Elevation: Discoordination Repeated Tip Elevation: Discoordination Palate and Pharynx Soft Palate Description: Normal Color, Normal Arch and Normal Symmetry Hard Palate Description: Normal Color and Normal Arch Gag Reflex Response: Normal Velopharyngeal Movement: Normal Food Presentation Solids Food Presented: Pureed Behaviors/Comments: [employer] provided applesauce only at this time x 5 trials with no overt s/s of aspiration noted. Liquids Liquid Presented: Thin Behaviors/Comments: Thin liquid water presentations x 5 with no overt s/s of aspiration noted Recommendations: Dysphagia Evaluation Dietary Recommendations: Puree and Thin Comments:: Pureed solid consistency or full liquid diet recommended at this time due to altered mental status and inability to follow commands. Additionally, Pt. is unable to wear upper denture at this time. Dysphagia Swallow Precautions/Strategies: Sitting Upright (90 deg), Chin Tuck, Liquids from Straw, Liquids from Spoon, Small Bites and Sips and Alternate Liquids/Solids Summary Dysphagia Evaluation Summary: Pt. is currently able to safely tolerate pureed consistency with thin liquids. [employer] has recommended medications to be crushed and given 1/2 to 1 tsp size bites using cyclic ingestion. Pt. demonstrates mild to mod decrease in oral/facial strength, coordination and agility. Pt. unable to follow simple commands at this time and is highly agitated/irritated. Further Therapy Indicated?: Yes Rehab Potential: Good Functional Reporting G Codes: N/A Severity Impairment Rationale: N/a Short Term Goals Problem: Oropharyngeal Dysphagia Goal #1: Pt. will tolerate pureed diet with thin liquids Goal to be met by: 09/20/23 Progress Towards Goal: Not Met Problem: Oropharyngeal Dysphagia Goal #2: Pt. will tolerate oral medications crushed in applesauce Goal to be met by: 09/20/23 Progress Towards Goal: Not Met [employer] Goals Problem: Oropharyngeal Dysphagia Goal #1: Pt. will be a safe oral eater to maintain adequate nutrition and hydration. Goal to be met by: 09/20/23 Progress towards goal: Not Met Problem: Oropharyngeal Dysphagia Goal #2: Pt. will tolerate oral medications, crushed in applesauce. 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
[2023-09-13] MEDS: ZINC OXIDE TP SCH ×2 (17:01→20:58)
[2023-09-13] MEDS: BENADRYL PO PRN (20:58)
[2023-09-14] MEDS: SOLU-MEDROL 40 MG IVP SCH ×4 (00:48→20:17)
[2023-09-14] MEDS: KEFLEX SUSPENSION PO SCH ×4 (00:49→17:25)
[2023-09-14] MEDS: DEXTROSE 5%-WATER IV SOLN 1,000 ML IV SCH ×3 (00:50→17:54)
[2023-09-14 05:16] LABS: HEMATOCRIT 33.9 % (42.0-52.0); HEMOGLOBIN 10.5 g/dl (14.0-18.0); LYMPHOCYTES # (AUTO) 0.6 K/uL (0.60-3.4); LYMPHOCYTES % (AUTO) 19.4 (10.0-50.0); MEAN CORPUSCULAR HEMOGLOBIN 27.2 pg (27.0-31.0); MEAN CORPUSCULAR VOLUME 87.8 fl (80.0-94.0); MONOCYTES % (AUTO) 0.6 (0-10); NEUTROPHILS # (AUTO) 2.5 K/ul (2.0-6.9); PLATELET COUNT 324 10^3/uL (140-440); RDW COEFFICIENT OF VARIATION 14.8 % (11.6-14.8); RED BLOOD COUNT 3.86 10^6/ul (4.70-6.10); WHITE BLOOD COUNT 3.14 K/ul (4.2-10.2)
[2023-09-14] MEDS: BENADRYL PO PRN ×2 (05:25→12:25)
[2023-09-14 05:29] LABS: ALANINE AMINOTRANSFERASE 39.8 U/L (0-50); ALBUMIN 3.37 g/dL (3.5-5.0); ASPARTATE AMINO TRANSFERASE 57.7 U/L (17-59); BILIRUBIN,TOTAL 0.48 mg/dL (0.2-1.3); BLOOD UREA NITROGEN 27.7 mg/dL (9-20); CALCIUM 8.29 mg/dL (8.4-10.2); CARBON DIOXIDE 20.2 mmol/L (22-30.0); CHLORIDE 123.3 mmol/L (98-107); CREATININE 1.37 mg/dL (0.60-1.10); GLUCOSE 330.8 mg/dL (74-106); POTASSIUM 3.48 mmol/L (3.5-5.1); SODIUM 150.1 mmol/L (134.5-145); TOTAL PROTEIN 6.96 g/dL (6.3-8.2)
[2023-09-14] MEDS: LOVENOX SUBCUT SCH (08:34)
--- NOTE | 2023-09-14 09:32 | PCM.PROG ---
Date/Time Seen Date Seen by Provider: 09/14/23 Time Seen by Provider: 09:00 Provider Provider: STEVEN CUTLER, [facility] Chief Complaint Chief Complaint: UTI, encephalopathy Subjective Subjective: Diffuse dermatitis developed to bilateral thighs, buttocks, and scrotum. Patient allergic to parabens found in nystatin powder that he was receiving. This was d/c'd and started on zinc oxide yesterday afternoon. Was concerned for allergic reaction and gave steroids, pepcid, and benadryl to help with itching. Mental status improving. Ate all of breakfast this am with nursing assistance. Objective Appearance: Positive No Apparent Distress and Ill-Appearing Chest/Lungs: Positive Symmetrical With Equal Breath Sounds, Clear to Auscultation Bilaterally and Good Air Movement all 4 Lung [place] Heart: Positive RRR and Pulses Normal GI/: Positive Soft, Nontender, Bowel Sounds Normal and No Distention Musculoskeletal: Positive Not Examined Neurological: Positive Sensation Intact, Motor intact, Alert and Disorinted Additional Findings: Erythematous areas to bilateral thighs (improved from yesterday), scrotum, and buttock. No open areas. Vital Signs Vital Signs: Vital Signs: Last 24 Hours 09/13/23 13:00 09/13/23 13:35 09/13/23 19:00 Temperature 97.8 F Temperature Source Tympanic Pulse Rate 104 H Respiratory Rate 22 H Blood Pressure 142/78 H Blood Pressure Mean 99 Blood Pressure Location Right Arm Blood Pressure Position Supine O2 Sat by Pulse Oximetry 94 L Oxygen Delivery Method Room Air Telemetry Type Remote Telemetry Remote Telemetry Telemetry Monitoring Continues Continues Telemetry Heart Rate 100 94 EKG MN Interval 0.16 0.20 EKG QRS Interval 0.10 0.06 Telemetry Strip Reading SR 09/13/23 20:00 09/13/23 21:14 09/14/23 01:00 Temperature 97.4 F L Temperature Source Temporal Artery Scan Pulse Rate 91 Respiratory Rate 18 20 Blood Pressure 133/81 Blood Pressure Mean 98 Blood Pressure Location Right Arm Blood Pressure Position Supine O2 Sat by Pulse Oximetry 95 Oxygen Delivery Method Room Air Room Air Telemetry Type Remote Telemetry Telemetry Monitoring Continues Telemetry Heart Rate 87 EKG MN Interval 0.12 EKG QRS Interval 0.07 Telemetry Strip Reading SR 09/14/23 05:41 09/14/23 07:00 09/14/23 08:00 Temperature 98.1 F Temperature Source Oral Pulse Rate 79 Respiratory Rate 19 Blood Pressure 133/74 Blood Pressure Mean 93 Blood Pressure Location Right Arm Blood Pressure Position Supine O2 Sat by Pulse Oximetry 96 Oxygen Delivery Method Room Air Room Air Telemetry Type Remote Telemetry Telemetry Monitoring Continues Telemetry Heart Rate 92 EKG MN Interval 0.18 EKG QRS Interval 0.11 H Telemetry Strip Reading NSR with BBB Lab Results Lab Results: Lab Results: Last 24 Hours 09/14/23 09/13/23 05:11 15:15 WBC 3.14 L RBC 3.86 L Hgb 10.5 L Hct 33.9 L MCV 87.8 MCH 27.2 MCHC 31.0 L RDW Coeff of [place] 14.8 Plt Count 324 Immature Gran % (Auto) 1.0 Neut % (Auto) 79.0 H Lymph % (Auto) 19.4 [place] % (Auto) 0.6 Eos % (Auto) 0.0 Baso % (Auto) 0.0 Neut # (Auto) 2.5 Lymph # (Auto) 0.6 [place] # (Auto) 0.0 L Eos # (Auto) 0.0 Baso # (Auto) 0.0 Immature Gran # (Auto) 0.0 Sodium 150.1 H 156.5 H Potassium 3.48 L 3.99 Chloride 123.3 H 127.4 H* Carbon Dioxide 20.2 L 21.7 L Anion Gap 10.08 11.39 BUN 27.7 H 23.3 H Creatinine 1.37 H 1.38 H Estimated GFR (MDRD) 49.00 49.00 BUN/Creatinine Ratio 20.21 16.88 Glucose 330.8 H D 127.4 H Calcium 8.29 L 8.58 Total Bilirubin 0.48 AST 57.7 ALT 39.8 Alkaline Phosphatase 61.0 Total Protein 6.96 Albumin 3.37 L Globulin 3.59 Albumin/Globulin Ratio 0.93 Additional Comments Additional Comments: I have independently reviewed and interpreted the labs/EKGs/imaging ordered during this hospital stay. I have reviewed outside records that are available in our EMR that pertain to medical stay including imaging/notes/labs from previous visits. Active Medications Active Medications: Medications Generic Name Dose Route Start Last Admin Trade Name Freq PRN Reason Stop Dose Admin Acetaminophen 650 mg 09/10/23 16:54 Acetaminophen 325 Mg Tablet PO Q4H PRN Mild Pain Cephalexin 500 mg 09/13/23 12:00 09/14/23 05:24 Cephalexin 250 Mg/5 Ml Susp PO 09/18/23 06:01 500 mg Q6HR ROBBIE Administration Diphenhydramine HCl 25 mg 09/13/23 15:45 09/14/23 05:25 Diphenhydramine Liquid 25 Mg/10 Ml Cup PO 25 mg Q6H PRN Administration Itching Enoxaparin Sodium 30 mg 09/12/23 09:00 09/14/23 08:34 Enoxaparin Sodium 30 Mg/0.3 Ml Syr SUBCUT 30 mg DAILY ROBBIE Administration Acetaminophen 1,000 mg in 100 mls @ 400 mls/hr 09/11/23 08:17 09/11/23 18:06 Acetaminophen IV 400 mls/hr Q6HR PRN Administration Pain Dextrose 1,000 mls @ 125 mls/hr 09/13/23 16:00 09/14/23 00:50 Dextrose 5%-Water Iv Soln IV 125 mls/hr .Q8H ROBBIE Administration Methylprednisolone Sodium Succinate 40 mg 09/13/23 23:00 09/14/23 05:25 Methylprednisolone Sod Succ/Pf 40 Mg/Ml Vial IVP 40 mg Q8HR ROBBIE Administration Ondansetron HCl 4 mg 09/10/23 20:56 Ondansetron Hcl/Pf 4 Mg/2 Ml Sdv IVP Q6H PRN Nausea / Vomiting Sodium Chloride 1 syr 09/10/23 14:41 09/13/23 15:50 0.9% Sodium Chloride 10 Ml Disp.Syrin IVF 1 syr PRN PRN Administration To flush IV Sodium Chloride 1 syr 09/12/23 21:00 09/14/23 05:26 0.9% Sodium Chloride 10 Ml Disp.Syrin IVF Not Given Q8HR ROBBIE Zinc Oxide 1 applic 09/13/23 21:19 Zinc Oxide 56.7 Gm Oint TP Q1HR PRN Rash Assessment (1) Oropharyngeal dysphagia: Status: Acute Code(s): R13.12 - Dysphagia, oropharyngeal phase SNOMED Code(s): 14295122 (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 Acute Pyelonephritis with moderate hydronephrosis - morphine Q4H prn for pain, IV tylenol Q6H prn for fever, urine culture revealed proteus mirabilis, stopped rocephin - started keflex PO 2. Hypernatremia - Improving, down to 150 this am with D5W@100mL/hr, repeat bmp this evening, telemetry 3. Acute metabolic encephalopathy in setting of UTI - Improving, avoid neurologically altering agents if able, monitor for worsening 3. Hypokalemia - Resolved, replaced 4. Hypertension - chronic, hold meds due to mental status and hypotension 5. Afib - chronic, stable, continue home medications 6. Dermatitis to buttocks, scrotum, and bilateral upper thighs - zinc oxide as needed every hour with incontinence episodes, solu-medrol 40 mg IVP Q8H Review Statement Review Statement: I have personally discussed and reviewed the patient's visit/currently labs/imaging/decision making with Dr. Chu, my supervising attending. Greater that 50 minutes spent with patient, 50% of the time spent with this patient was devoted to counseling and coordination of care.
[2023-09-14] MEDS: ZINC OXIDE TP PRN ×2 (10:12→20:17)
[2023-09-14] MEDS ORDERED: HUMULIN R SUBCUT STA (12:21)
[2023-09-14] MEDS: HUMULIN R SUBCUT PRN (17:27)
[2023-09-15] MEDS: KEFLEX SUSPENSION PO SCH ×4 (00:51→17:35)
[2023-09-15] MEDS: DEXTROSE 5%-WATER IV SOLN 1,000 ML IV SCH ×3 (00:52→22:27)
[2023-09-15] MEDS: SOLU-MEDROL 40 MG IVP SCH ×3 (05:11→21:00)
[2023-09-15 05:32] LABS: BASOPHILS % (AUTO) 0.2 % (0.0-3.0); HEMATOCRIT 31.3 % (42.0-52.0); HEMOGLOBIN 9.6 g/dl (14.0-18.0); IMMATURE GRANULOCYTE # (AUTO) 0.1 (0.0-1.0); IMMATURE GRANULOCYTE % (AUTO) 1.1 % (0.0-5.0); LYMPHOCYTES # (AUTO) 0.6 K/uL (0.60-3.4); LYMPHOCYTES % (AUTO) 11.6 (10.0-50.0); MEAN CORPUSCULAR HEMOGLOBIN 27.3 pg (27.0-31.0); MEAN CORPUSCULAR HGB CONC 30.7 (31.8-35.4); MEAN CORPUSCULAR VOLUME 88.9 fl (80.0-94.0); MONOCYTES # (AUTO) 0.1 K/uL (0.4-2.0); MONOCYTES % (AUTO) 1.3 (0-10); NEUTROPHILS # (AUTO) 4.8 K/ul (2.0-6.9); NEUTROPHILS % (AUTO) 85.8 % (42.2-75.2); PLATELET COUNT 280 10^3/uL (140-440); RED BLOOD COUNT 3.52 10^6/ul (4.70-6.10); WHITE BLOOD COUNT 5.54 K/ul (4.2-10.2)
[2023-09-15 05:42] LABS: ALBUMIN 3.17 g/dL (3.5-5.0); ASPARTATE AMINO TRANSFERASE 61.8 U/L (17-59); BILIRUBIN,TOTAL 0.43 mg/dL (0.2-1.3); BLOOD UREA NITROGEN 39.3 mg/dL (9-20); CALCIUM 8.27 mg/dL (8.4-10.2); CARBON DIOXIDE 20.2 mmol/L (22-30.0); CHLORIDE 119.2 mmol/L (98-107); CREATININE 1.63 mg/dL (0.60-1.10); GLUCOSE 236.5 mg/dL (74-106); POTASSIUM 3.15 mmol/L (3.5-5.1); SODIUM 146.1 mmol/L (134.5-145); TOTAL PROTEIN 6.31 g/dL (6.3-8.2)
[2023-09-15] MEDS: HUMULIN R SUBCUT PRN ×3 (06:15→17:38)
[2023-09-15] MEDS: LOVENOX SUBCUT SCH (08:25)
[2023-09-15] MEDS: BENADRYL PO PRN (08:25)
[2023-09-15] MEDS: ZINC OXIDE TP PRN ×2 (08:32→20:57)
[2023-09-15] MEDS ORDERED: POTASSIUM CHLORIDE 20 MEQ/100 ML PREMIX 20 MEQ/100 ML BAG IV ONE ×2 (09:30→11:30)
--- NOTE | 2023-09-15 09:55 | PCM.PROG ---
Date/Time Seen Date Seen by Provider: 09/15/23 Time Seen by Provider: 09:00 Provider [facility] Chief Complaint Chief Complaint: UTI, encephalopathy Subjective Subjective: Ate well yesterday. Resting comfortably this am. No fever or events overnight. Objective Appearance: Positive No Apparent Distress and Thin Chest/Lungs: Positive Symmetrical With Equal Breath Sounds, Clear to Auscultation Bilaterally and Good Air Movement all 4 Lung [place] Heart: Positive RRR and Pulses Normal GI/: Positive Soft, Nontender, Bowel Sounds Normal and No Distention Musculoskeletal: Positive Not Examined Neurological: Positive Sensation Intact, Motor intact, Alert and Disorinted Additional Findings: Erythema to bilateral upper thighs resolved, erythema to scrotum improving, patient not itching/scratching as much at this time Vital Signs Vital Signs: Vital Signs: Last 24 Hours 09/14/23 13:00 09/14/23 14:00 09/14/23 19:00 Temperature 98.2 F Temperature Source Temporal Artery Scan Pulse Rate 98 Respiratory Rate 24 H Blood Pressure 133/80 Blood Pressure Mean 97 Blood Pressure Location Right Arm Blood Pressure Position O2 Sat by Pulse Oximetry 98 Oxygen Delivery Method Room Air Telemetry Type Remote Telemetry Remote Telemetry Telemetry Monitoring Continues Continues Telemetry Heart Rate 91 86 EKG SD Interval 0.18 0.18 EKG QRS Interval 0.09 0.08 Telemetry Strip Reading NSR SINUS RHYTHM 09/14/23 20:00 09/14/23 21:16 09/15/23 01:00 Temperature 97.9 F Temperature Source Temporal Artery Scan Pulse Rate 81 Respiratory Rate 96 H Blood Pressure 117/74 Blood Pressure Mean 88 Blood Pressure Location Left Arm Blood Pressure Position Supine O2 Sat by Pulse Oximetry 96 Oxygen Delivery Method Room Air Room Air Telemetry Type Remote Telemetry Telemetry Monitoring Continues Telemetry Heart Rate 92 EKG SD Interval 0.17 EKG QRS Interval 0.06 Telemetry Strip Reading SR 09/15/23 06:00 09/15/23 07:00 Temperature 98.3 F Temperature Source Temporal Artery Scan Pulse Rate 78 Respiratory Rate 18 Blood Pressure 115/70 Blood Pressure Mean 85 Blood Pressure Location Left Arm Blood Pressure Position Supine O2 Sat by Pulse Oximetry 96 Oxygen Delivery Method Room Air Telemetry Type Remote Telemetry Telemetry Monitoring Continues Telemetry Heart Rate 79 EKG SD Interval 0.18 EKG QRS Interval 0.10 Telemetry Strip Reading NSR Lab Results Lab Results: Lab Results: Last 24 Hours 09/15/23 05:20 WBC 5.54 RBC 3.52 L Hgb 9.6 L Hct 31.3 L MCV 88.9 MCH 27.3 MCHC 30.7 L RDW Coeff of [place] 15.0 H Plt Count 280 Immature Gran % (Auto) 1.1 Neut % (Auto) 85.8 H Lymph % (Auto) 11.6 [place] % (Auto) 1.3 Eos % (Auto) 0.0 Baso % (Auto) 0.2 Neut # (Auto) 4.8 Lymph # (Auto) 0.6 [place] # (Auto) 0.1 L Eos # (Auto) 0.0 Baso # (Auto) 0.0 Immature Gran # (Auto) 0.1 Sodium 146.1 H Potassium 3.15 L Chloride 119.2 H Carbon Dioxide 20.2 L Anion Gap 9.85 BUN 39.3 H Creatinine 1.63 H Estimated GFR (MDRD) 40.00 BUN/Creatinine Ratio 24.11 Glucose 236.5 H Calcium 8.27 L Total Bilirubin 0.43 AST 61.8 H ALT 42.0 Alkaline Phosphatase 47.0 L Total Protein 6.31 Albumin 3.17 L Globulin 3.14 Albumin/Globulin Ratio 1.00 Additional Comments Additional Comments: I have independently reviewed and interpreted the labs/EKGs/imaging ordered during this hospital stay. I have reviewed outside records that are available in our EMR that pertain to medical stay including imaging/notes/labs from previous visits. Active Medications Active Medications: Medications Generic Name Dose Route Start Last Admin Trade Name Freq PRN Reason Stop Dose Admin Acetaminophen 650 mg 09/10/23 16:54 Acetaminophen 325 Mg Tablet PO Q4H PRN Mild Pain Cephalexin 500 mg 09/13/23 12:00 09/15/23 05:09 Cephalexin 250 Mg/5 Ml Susp PO 09/18/23 06:01 500 mg Q6HR ROBBIE Administration Diphenhydramine HCl 25 mg 09/13/23 15:45 09/15/23 08:25 Diphenhydramine Liquid 25 Mg/10 Ml Cup PO 25 mg Q6H PRN Administration Itching Enoxaparin Sodium 30 mg 09/12/23 09:00 09/15/23 08:25 Enoxaparin Sodium 30 Mg/0.3 Ml Syr SUBCUT 30 mg DAILY ROBBIE Administration Acetaminophen 1,000 mg in 100 mls @ 400 mls/hr 09/11/23 08:17 09/11/23 18:06 Acetaminophen IV 400 mls/hr Q6HR PRN Administration Pain Dextrose 1,000 mls @ 125 mls/hr 09/13/23 16:00 09/15/23 08:31 Dextrose 5%-Water Iv Soln IV 125 mls/hr .Q8H ROBBIE Administration Potassium Chloride 20 meq in 100 mls @ 50 mls/hr 09/15/23 09:30 09/15/23 09:30 Potassium Chloride 20 Meq/100 Ml Premix IV 09/15/23 11:29 50 mls/hr ONCE ONE Administration Potassium Chloride 20 meq in 100 mls @ 50 mls/hr 09/15/23 11:30 Potassium Chloride 20 Meq/100 Ml Premix IV 09/15/23 13:29 ONCE ONE Insulin Human Regular 0 unit 09/14/23 11:35 09/15/23 06:15 Insulin Regular, Human 100 Unit/Ml (3ml) Vial SUBCUT 5 unit PRN PRN Administration Hyperglycemia Protocol Methylprednisolone Sodium Succinate 40 mg 09/13/23 23:00 09/15/23 05:11 Methylprednisolone Sod Succ/Pf 40 Mg/Ml Vial IVP 40 mg Q8HR ROBBIE Administration Ondansetron HCl 4 mg 09/10/23 20:56 Ondansetron Hcl/Pf 4 Mg/2 Ml Sdv IVP Q6H PRN Nausea / Vomiting Sodium Chloride 1 syr 09/10/23 14:41 09/14/23 12:53 0.9% Sodium Chloride 10 Ml Disp.Syrin IVF 1 syr PRN PRN Administration To flush IV Zinc Oxide 1 applic 09/13/23 21:19 09/15/23 08:32 Zinc Oxide 56.7 Gm Oint TP 1 applic Q1HR PRN Administration Rash Assessment (1) Oropharyngeal dysphagia: Status: Acute Code(s): R13.12 - Dysphagia, oropharyngeal phase SNOMED Code(s): 22097357 (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 Acute Pyelonephritis with moderate hydronephrosis - morphine Q4H prn for pain , IV tylenol Q6H prn for fever, urine culture revealed proteus mirabilis, stopped rocephin - keflex PO Q8H 2. Hypernatremia - Improving, down to 146 this am with D5W@100mL/hr, telemetry 3. ASHLEY - in setting of above and obstructive uropathy, ro catheter in place, continue IVF, checking urine sodium and creatinine, repeat bmp this afternoon 4. Acute metabolic encephalopathy in setting of UTI - Improving, avoid neurologically altering agents if able, monitor for worsening 5. Hypokalemia - Resolved, replaced 6. Hypertension - chronic, hold meds due to mental status and hypotension 7. Afib - chronic, stable, continue home medications 8. Dermatitis to buttocks, scrotum, and bilateral upper thighs - zinc oxide as needed every hour with incontinence episodes, solu-medrol 40 mg IVP Q8H Review Statement Review Statement: I have personally discussed and reviewed the patient's visit/currently labs/imaging/decision making with Dr. Chu, my supervising attending. Greater that 50 minutes spent with patient, 50% of the time spent with this patient was devoted to counseling and coordination of care.
--- NOTE | 2023-09-15 14:57 | DCSUM ---
Admission Date Admission Date: 09/10/23 Discharge Date Discharge Date: 09/15/23 Admission Diagnosis Admission Diagnosis: 1. Acute Pyelonephritis with moderate hydronephrosis 2. Acute metabolic encephalopathy in setting of UTI 3. Hypokalemia 4. Hypertension 5. Afib Discharge Diagnosis Discharge Diagnosis: 1. Acute Pyelonephritis with moderate hydronephrosis - Improving 2. Hypernatremia - Improving 3. ASHLEY 4. Acute metabolic encephalopathy in setting of UTI - Improving 5. Hypokalemia 6. Hypertension - chronic, stable 7. Afib - chronic, stable, 8. Dermatitis to buttocks, scrotum, and bilateral upper thighs - Improving Hospital Provider Hospital Provider: STEVEN CUTLER, [facility] Primary Care Physician Primary Care Physician: EMMY FORBES Summary of History and Physical Summary of History and Physical: 83 yo male presented to the ER by EMS from [facility] for AMS. Patient has baseline dementia and is unable to provide HPI or ROS. ER provider reports that nursing staff at the facility reported patient has been agitated and not hisself throughout the day. He was catheterized for a urinal ysis but did not have the results back at that time. UA here revealed significant UTI. Patient also febrile at 101. Hospital Course Subjective: During course of stay patient was treated for acute pyelonephritis with moderate hydronephrosis. He received rocephin 1G IV and transitioned to PO Keflex on 09/13. Urine culture positive for proteus mirabilis with sensitivity to rocephin. He was given NS@100mL/hr from 09/10-09/11. Fluids were stopped on 09/12 due to sodium increasing. By 09/13, sodium increased to 154. He was started on D5W@125mL/hr. Sodium responded appropriately and is down to 146 today. Renal function continued to decline from 09/13 to today. Creatinine now 1.6. Bladder scan was completed on patient and showed 999. Ro catheter with coude tip was used and unsuccessful insertion attempted x 3. Family reported that he has had problems in the past and had to self-cath at home [facility] Has had intermittent hypokalemia due to fluid resusitation/ASHLEY - has been replaced Developed a dermatitis to buttocks, scrotum, and bilateral upper thighs - unsure if source from incontinence or medication. Has been receiving steroids and zinc oxide has been applied to the areas and are much improved. All home medications continued and no changes were made. Due to inability of placing ro catheter, transferring patient for obstructive uropathy. Appearance: No Apparent Distress HEENT: MMM and Supple CVS: No Murmur, No Rubs and No Gallop Abdomen: Soft, Non-Tender and No Distention Respiratory: No Dyspnea Extremities: No Edema Vital Signs: Most Recent Vital Signs Temperature 98.3 F 09/15/23 06:00 Temperature Source Temporal Artery Scan 09/15/23 06:00 Temperature Source Infrared 09/10/23 14:40 Pulse Rate 78 09/15/23 06:00 Respiratory Rate 18 09/15/23 08:00 Blood Pressure 115/70 09/15/23 06:00 Blood Pressure Mean 85 09/15/23 06:00 Blood Pressure Right Arm 112/66 09/10/23 17:10 Blood Pressure Location Left Arm 09/15/23 06:00 Blood Pressure Position Supine 09/15/23 06:00 O2 Sat by Pulse Oximetry 96 09/15/23 06:00 Oxygen Delivery Method Room Air 09/15/23 08:00 Height 5 ft 10.5 in 09/11/23 07:01 Weight 153 lb 09/11/23 07:01 Telemetry Type Remote Telemetry 09/15/23 13:00 Telemetry Monitoring Continues 09/15/23 13:00 Telemetry Heart Rate 86 09/15/23 13:00 Telemetry SPO2 93 09/12/23 19:00 EKG CA Interval 0.20 09/15/23 13:00 EKG QRS Interval 0.08 09/15/23 13:00 Telemetry Strip Reading SR 09/15/23 13:00 Lab Results Last 24 Hours: 09/15/23 05:20 WBC 5.54 RBC 3.52 L Hgb 9.6 L Hct 31.3 L MCV 88.9 MCH 27.3 MCHC 30.7 L RDW Coeff of [place] 15.0 H Plt Count 280 Immature Gran % (Auto) 1.1 Neut % (Auto) 85.8 H Lymph % (Auto) 11.6 [place] % (Auto) 1.3 Eos % (Auto) 0.0 Baso % (Auto) 0.2 Neut # (Auto) 4.8 Lymph # (Auto) 0.6 [place] # (Auto) 0.1 L Eos # (Auto) 0.0 Baso # (Auto) 0.0 Immature Gran # (Auto) 0.1 Sodium 146.1 H Potassium 3.15 L Chloride 119.2 H Carbon Dioxide 20.2 L Anion Gap 9.85 BUN 39.3 H Creatinine 1.63 H Estimated GFR (MDRD) 40.00 BUN/Creatinine Ratio 24.11 Glucose 236.5 H Calcium 8.27 L Total Bilirubin 0.43 AST 61.8 H ALT 42.0 Alkaline Phosphatase 47.0 L Total Protein 6.31 Albumin 3.17 L Globulin 3.14 Albumin/Globulin Ratio 1.00 Discharge Instructions Discharge Planning: Discharge Planning > 40 minutes If patient is discharged with left ventricular systolic dysfunction: NA Discharged with a beta jarocho? [] If no, why not? [] Discharged with an harinder/arb? [] If no, why not? [] Transfer to [facility] under the care of Dr. Capellan - Urology, and Dr. Price - Hospitalist. Discharge Medications: Medications at Discharge (Home Meds & RX) amiodarone 200 mg tablet 200 mg PO DAILY 07/10/23 apixaban 2.5 mg tablet (Eliquis) 5 mg PO BID 07/10/23 atorvastatin 10 mg tablet 10 mg PO DAILY 07/10/23 metoprolol succinate 50 mg tablet,extended release 24 hr 50 mg PO DAILY 07/10/23 pantoprazole 40 mg tablet,delayed release 40 mg PO QAM 07/10/23 oxycodone-acetaminophen 10 mg-325 mg tablet 1 tab PO TID PRN neck pain #90 tabs 08/04/23 buspirone 10 mg tablet 10 mg PO BID 09/10/23 dupilumab 300 mg/2 mL subcutaneous pen injector (Dupixent) 300 mg subcut DAILY 09/10/23 menthol 0.44 %-zinc oxide 20.6 % topical ointment (CalaSoothe) 1 applic topical 3-4XD PRN excoriation 09/10/23 nitroglycerin 0.4 mg sublingual tablet 0.4 mg sublingual Q5-15M PRN chest pain 09/10/23 Discharge Plan Discharge Prescriptions: No Action oxycodone-acetaminophen 10-325 mg tablet 1 tab PO TID PRN (Reason: neck pain) Qty: 90 0RF amiodarone 200 mg tablet 200 mg PO DAILY Eliquis 2.5 mg tablet 5 mg PO BID atorvastatin 10 mg tablet 10 mg PO DAILY metoprolol succinate 50 mg tablet extended release 24 hr 50 mg PO DAILY pantoprazole 40 mg tablet,delayed release (DR/EC) 40 mg PO QAM nitroglycerin 0.4 mg tablet, sublingual 0.4 mg sublingual Q5-15M PRN (Reason: chest pain) Rx Instructions: do not exceed 3 doses per episode buspirone 10 mg tablet 10 mg PO BID Dupixent Pen 300 mg/2 mL pen injector 300 mg subcut DAILY menthol-zinc oxide [CalaSoothe] 0.44-20.6 % ointment 1 applic topical 3-4XD PRN (Reason: excoriation) Did you review [place] [employer] for ALL controlled substances?: No Discussed opioids are addictive and Narcan is available by prescription or from pharmacy.: No
[2023-09-15 16:30] LABS: CALCIUM 8.17 mg/dL (8.4-10.2); CARBON DIOXIDE 21.7 mmol/L (22-30.0); CHLORIDE 117.9 mmol/L (98-107); CREATININE 1.41 mg/dL (0.60-1.10); GLUCOSE 218.2 mg/dL (74-106); POTASSIUM 3.71 mmol/L (3.5-5.1); SODIUM 144.6 mmol/L (134.5-145)
[2023-09-15] MEDS: FLOMAX PO SCH (17:41)
[2023-09-15] MEDS ORDERED: DEXTROSE 5%-WATER IV SOLN 1,000 ML IV SCH (22:06)
[2023-09-16 05:22] LABS: HEMATOCRIT 28.3 % (42.0-52.0); IMMATURE GRANULOCYTE % (AUTO) 0.8 % (0.0-5.0); LYMPHOCYTES # (AUTO) 0.5 K/uL (0.60-3.4); LYMPHOCYTES % (AUTO) 8.6 (10.0-50.0); MEAN CORPUSCULAR HGB CONC 31.8 (31.8-35.4); MEAN CORPUSCULAR VOLUME 87.9 fl (80.0-94.0); MONOCYTES # (AUTO) 0.1 K/uL (0.4-2.0); MONOCYTES % (AUTO) 1.5 (0-10); NEUTROPHILS # (AUTO) 4.7 K/ul (2.0-6.9); NEUTROPHILS % (AUTO) 89.1 % (42.2-75.2); PLATELET COUNT 238 10^3/uL (140-440); RDW COEFFICIENT OF VARIATION 14.7 % (11.6-14.8); RED BLOOD COUNT 3.22 10^6/ul (4.70-6.10); WHITE BLOOD COUNT 5.22 K/ul (4.2-10.2)
[2023-09-16] MEDS: KEFLEX SUSPENSION PO SCH ×3 (05:30→12:44)
[2023-09-16] MEDS: SOLU-MEDROL 40 MG IVP SCH ×2 (05:32→12:47)
[2023-09-16 05:35] LABS: ALANINE AMINOTRANSFERASE 57.2 U/L (0-50); ALBUMIN 3.01 g/dL (3.5-5.0); ALKALINE PHOSPHATASE 42.8 U/L (56-119); ASPARTATE AMINO TRANSFERASE 64.3 U/L (17-59); BILIRUBIN,TOTAL 0.45 mg/dL (0.2-1.3); BLOOD UREA NITROGEN 39.5 mg/dL (9-20); CALCIUM 8.05 mg/dL (8.4-10.2); CARBON DIOXIDE 23.9 mmol/L (22-30.0); CHLORIDE 117.4 mmol/L (98-107); CREATININE 1.41 mg/dL (0.60-1.10); POTASSIUM 3.55 mmol/L (3.5-5.1); SODIUM 144.2 mmol/L (134.5-145); TOTAL PROTEIN 6.13 g/dL (6.3-8.2)
[2023-09-16 05:59] VITALS: RESP 20
[2023-09-16] MEDS: HUMULIN R SUBCUT PRN ×2 (06:15→12:48)
[2023-09-16] MEDS: FLOMAX PO SCH (09:52)
[2023-09-16] MEDS: LOVENOX SUBCUT SCH (09:52)
--- NOTE | 2023-09-16 10:28 | DCSUM ---
Admission Date Admission Date: 09/10/23 Discharge Date Discharge Date: 09/16/23 Admission Diagnosis Admission Diagnosis: 1. Acute pyelonephritis 2. Acute metabolic encephalopathy due to UTI Discharge Diagnosis Discharge Diagnosis: 1. Obstructive uropathy 2. Acute Pyelonephritis with moderate hydronephrosis due to proteus mirabilis 3. Hypernatremia - Resolved 4. Acute metabolic encephalopathy in setting of UTI - Improving 5. Hypokalemia - Resolved 6. Hypertension 7. Afib 8. Dermatitis to buttocks, scrotum, and bilateral upper thighs - improving 9. ASHLEY, stage 1 Hospital Provider Hospital Provider[facility] Primary Care Physician Primary Care Physician: EMMY FORBES Summary of History and Physical Summary of History and Physical: 83 yo male presented to the ER by EMS from [facility] for AMS. Patient has baseline dementia and is unable to provide HPI or ROS. ER provider reports that nursing staff at the facility reported patient has been agitated and not hisself throughout the day. He was catheterized for a urinalysis but did not have the results back at that time. UA here revealed significant UTI. Patient also febrile at 101. Hospital Course Subjective: Patient was treated with rocephin. Mentation improved. UCx showed proteus mirabilis sensitive to keflex, patient was transitioned to PO. Patient had a rash in his groin/buttock area that worsened with antifungals, he was given topical zinc oxide and treated with steroids and this greatly improved. Pt began having urinary retention. Bladder scan >[address] ro catheter despite multiple attempts by nursing, hospitalist provider, and ER provider. Continues to have some incontinence but still retaining, >999 ml this morning. Pt was accepted at [facility] in [facility] by Dr. Price (hospitalist) and Dr. Capellan, urology on 09/15/23. Discharge has been delayed due to transportation issues. Patient transferred today in stable condition. Daughter aware. Appearance: Alert, Ill-appearing and Other (+Appears uncomfortable. ) HEENT: MMM CVS: No Murmur Abdomen: Other (+suprapubic tenderness) Respiratory: No Dyspnea Extremities: No Edema Additional Findings: Rash in groin/buttock area improving. Vital Signs: Most Recent Vital Signs Temperature 99.3 F 09/16/23 05:58 Temperature Source Temporal Artery Scan 09/16/23 05:58 Temperature Source Infrared 09/10/23 14:40 Pulse Rate 78 09/16/23 05:58 Respiratory Rate 20 09/16/23 05:58 Blood Pressure 129/82 09/16/23 05:58 Blood Pressure Mean 97 09/16/23 05:58 Blood Pressure Right Arm 112/66 09/10/23 17:10 Blood Pressure Location Left Arm 09/16/23 05:58 Blood Pressure Position Supine 09/16/23 05:58 O2 Sat by Pulse Oximetry 95 09/16/23 05:58 Oxygen Delivery Method Room Air 09/16/23 05:58 Height 5 ft 10.5 in 09/11/23 07:01 Weight 153 lb 09/11/23 07:01 Telemetry Type Remote Telemetry 09/16/23 01:00 Telemetry Monitoring Continues 09/16/23 01:00 Telemetry Heart Rate 72 09/16/23 01:00 Telemetry SPO2 93 09/12/23 19:00 EKG OH Interval 0.18 09/16/23 01:00 EKG QRS Interval 0.09 09/16/23 01:00 Telemetry Strip Reading SR 09/16/23 01:00 Imaging: EXAM: CT ABDOMEN AND PELVIS WITHOUT CONTRAST HISTORY: Abdominal and pelvic pain. TECHNIQUE: CT acquisition of the abdomen and pelvis from the lower thorax through the pelvis without IV contrast administration. 2-D coronal and sagittal reformatted images were obtained from the axial source images. Oral Contrast: None. CT Dose Reduction Techniques Performed: Yes. COMPARISON: None. FINDINGS: Lower Thorax: There is cardiomegaly. Liver: No mass. Normal morphology. Biliary: There has been cholecystectomy. Pancreas: No mass or evidence of pancreatitis. No duct dilation. Spleen: No mass. No splenomegaly. Adrenals: No mass. Kidneys/Ureters: There is moderate bilateral hydronephrosis. The ureters are dilated to the level of the urinary bladder. No stone or mass. GI Tract: No bowel dilation. No bowel wall thickening. Peritoneal Cavity: No ascites. Retroperitoneum: No mass or fluid collection. Lymph Nodes: No lymphadenopathy. Vasculature: No aortic or iliac aneurysm within limitations of noncontrast examination. Pelvis: The urinary bladder is thick-walled and trabeculated as well as moderately distended. There are small foci of gas superiorly and anteriorly. Difficult determine if these are within the urinary bladder wall or within the lumen from previous instrumentation. Normal appearance of the prostate. Bones/Soft Tissues: There has been previous posterior lumbar fixation surgery with interbody spacers. Visualized soft tissues are within normal limits. IMPRESSION: 1. Moderate bilateral hydroureternephrosis probably secondary to downstream abnormality involving the urinary bladder. There is diffuse urinary bladder wall thickening with foci of gas in the anterior bladder wall. Correlate for recent instrumentation. The possibility of early emphysematous cystitis cannot be excluded. Lab Results Last 24 Hours: 09/16/23 09/15/23 05:18 16:17 WBC 5.22 RBC 3.22 L Hgb 9.0 L Hct 28.3 L MCV 87.9 MCH 28.0 MCHC 31.8 RDW Coeff of Temi 14.7 Plt Count 238 Immature Gran % (Auto) 0.8 Neut % (Auto) 89.1 H Lymph % (Auto) 8.6 L [place] % (Auto) 1.5 Eos % (Auto) 0.0 Baso % (Auto) 0.0 Neut # (Auto) 4.7 Lymph # (Auto) 0.5 L [place] # (Auto) 0.1 L Eos # (Auto) 0.0 Baso # (Auto) 0.0 Immature Gran # (Auto) 0.0 Sodium 144.2 144.6 Potassium 3.55 3.71 Chloride 117.4 H 117.9 H Carbon Dioxide 23.9 21.7 L Anion Gap 6.45 8.71 BUN 39.5 H 40.0 H Creatinine 1.41 H 1.41 H Estimated GFR (MDRD) 48.00 48.00 BUN/Creatinine Ratio 28.01 28.36 Glucose 194.0 H 218.2 H Calcium 8.05 L 8.17 L Total Bilirubin 0.45 AST 64.3 H ALT 57.2 H Alkaline Phosphatase 42.8 L Total Protein 6.13 L Albumin 3.01 L Globulin 3.12 Albumin/Globulin Ratio 0.96 Discharge Instructions Discharge Planning: Discharge Planning > [address] Miranda Chu. Discharge Medications: Medications at Discharge (Home Meds & RX) amiodarone 200 mg tablet 200 mg PO DAILY 07/10/23 apixaban 2.5 mg tablet (Eliquis) 5 mg PO BID 07/10/23 atorvastatin 10 mg tablet 10 mg PO DAILY 07/10/23 metoprolol succinate 50 mg tablet,extended release 24 hr 50 mg PO DAILY 07/10/23 pantoprazole 40 mg tablet,delayed release 40 mg PO QAM 07/10/23 oxycodone-acetaminophen 10 mg-325 mg tablet 1 tab PO TID PRN neck pain #90 tabs 08/04/23 buspirone 10 mg tablet 10 mg PO BID 09/10/23 dupilumab 300 mg/2 mL subcutaneous pen injector (Dupixent) 300 mg subcut DAILY 09/10/23 menthol 0.44 %-zinc oxide 20.6 % topical ointment (CalaSoothe) 1 applic topical 3-4XD PRN excoriation 09/10/23 nitroglycerin 0.4 mg sublingual tablet 0.4 mg sublingual Q5-15M PRN chest pain 09/10/23 Discharge Plan Discharge Prescriptions: No Action oxycodone-acetaminophen 10-325 mg tablet 1 tab PO TID PRN (Reason: neck pain) Qty: 90 0RF amiodarone 200 mg tablet 200 mg PO DAILY Eliquis 2.5 mg tablet 5 mg PO BID atorvastatin 10 mg tablet 10 mg PO DAILY metoprolol succinate 50 mg tablet extended release 24 hr 50 mg PO DAILY pantoprazole 40 mg tablet,delayed release (DR/EC) 40 mg PO QAM nitroglycerin 0.4 mg tablet, sublingual 0.4 mg sublingual Q5-15M PRN (Reason: chest pain) Rx Instructions: do not exceed 3 doses per episode buspirone 10 mg tablet 10 mg PO BID Dupixent Pen 300 mg/2 mL pen injector 300 mg subcut DAILY menthol-zinc oxide [CalaSoothe] 0.44-20.6 % ointment 1 applic topical 3-4XD PRN (Reason: excoriation) Did you review [place] [employer] for ALL controlled substances?: No Discussed opioids are addictive and Narcan is available by prescription or from pharmacy.: No
--- NOTE | 2023-09-16 12:16 | PCM.PROG ---
Date/Time Seen Date Seen by Provider: 09/15/23 Time Seen by Provider: 09:00 Provider Provider: KRISSY ROBINS PA-C, [facility] Chief Complaint Chief Complaint: UTI, encephalopathy Subjective Subjective: No events overnight. No fevers. Still producing urine. Restless in bed. Objective Appearance: Positive No Apparent Distress and Ill-Appearing Chest/Lungs: Positive Symmetrical With Equal Breath Sounds, Clear to Auscultation Bilaterally and Good Air Movement all 4 Lung [place] Heart: Positive RRR and Pulses Normal GI/: Positive Soft, Nontender, Bowel Sounds Normal and No Distention Musculoskeletal: Positive Not Examined Neurological: Positive Sensation Intact, Motor intact, Alert and Disorinted Vital Signs Vital Signs: Vital Signs: Last 24 Hours 09/15/23 13:00 09/15/23 14:00 09/15/23 19:00 Temperature 97.1 F L Temperature Source Temporal Artery Scan Pulse Rate 81 Respiratory Rate 34 H Blood Pressure 123/69 Blood Pressure Mean 87 Blood Pressure Location Left Arm Blood Pressure Position Supine O2 Sat by Pulse Oximetry 97 Oxygen Delivery Method Room Air Telemetry Type Remote Telemetry Remote Telemetry Telemetry Monitoring Continues Continues Irregular Telemetry Rate (Approximate) Telemetry Heart Rate 86 83 EKG IN Interval 0.20 0.17 EKG QRS Interval 0.08 0.08 Telemetry Strip Reading SR SINUS RHYTHM 09/15/23 20:00 09/15/23 21:17 09/16/23 01:00 Temperature 97.6 F Temperature Source Temporal Artery Scan Pulse Rate 87 Respiratory Rate 22 H Blood Pressure 127/70 Blood Pressure Mean 89 Blood Pressure Location Left Arm Blood Pressure Position Supine O2 Sat by Pulse Oximetry 96 Oxygen Delivery Method Room Air Room Air Telemetry Type Remote Telemetry Telemetry Monitoring Continues Irregular Telemetry Rate (Approximate) Telemetry Heart Rate 72 EKG IN Interval 0.18 EKG QRS Interval 0.09 Telemetry Strip Reading SR 09/16/23 05:58 09/16/23 07:00 Temperature 99.3 F Temperature Source Temporal Artery Scan Pulse Rate 78 Respiratory Rate 20 Blood Pressure 129/82 Blood Pressure Mean 97 Blood Pressure Location Left Arm Blood Pressure Position Supine O2 Sat by Pulse Oximetry 95 Oxygen Delivery Method Room Air Telemetry Type Remote Telemetry Telemetry Monitoring Continues Irregular Telemetry Rate (Approximate) 60-70 BPM Telemetry Heart Rate 68 EKG IN Interval 0.15 EKG QRS Interval 0.11 H Telemetry Strip Reading Sinus Arrhythmia Lab Results Lab Results: Lab Results: Last 24 Hours 09/16/23 09/15/23 05:18 16:17 WBC 5.22 RBC 3.22 L Hgb 9.0 L Hct 28.3 L MCV 87.9 MCH 28.0 MCHC 31.8 RDW Coeff of Temi 14.7 Plt Count 238 Immature Gran % (Auto) 0.8 Neut % (Auto) 89.1 H Lymph % (Auto) 8.6 L [place] % (Auto) 1.5 Eos % (Auto) 0.0 Baso % (Auto) 0.0 Neut # (Auto) 4.7 Lymph # (Auto) 0.5 L [place] # (Auto) 0.1 L Eos # (Auto) 0.0 Baso # (Auto) 0.0 Immature Gran # (Auto) 0.0 Sodium 144.2 144.6 Potassium 3.55 3.71 Chloride 117.4 H 117.9 H Carbon Dioxide 23.9 21.7 L Anion Gap 6.45 8.71 BUN 39.5 H 40.0 H Creatinine 1.41 H 1.41 H Estimated GFR (MDRD) 48.00 48.00 BUN/Creatinine Ratio 28.01 28.36 Glucose 194.0 H 218.2 H Calcium 8.05 L 8.17 L Total Bilirubin 0.45 AST 64.3 H ALT 57.2 H Alkaline Phosphatase 42.8 L Total Protein 6.13 L Albumin 3.01 L Globulin 3.12 Albumin/Globulin Ratio 0.96 Additional Comments Additional Comments: I have independently reviewed and interpreted the labs/EKGs/imaging ordered during this hospital stay. I have reviewed outside records that are available in our EMR that pertain to medical stay including imaging/notes/labs from previous visits. Active Medications Active Medications: Medications Generic Name Dose Route Start Last Admin Trade Name Freq PRN Reason Stop Dose Admin Acetaminophen 650 mg 09/10/23 16:54 Acetaminophen 325 Mg Tablet PO Q4H PRN Mild Pain Cephalexin 500 mg 09/13/23 12:00 09/16/23 05:30 Cephalexin 250 Mg/5 Ml Susp PO 09/18/23 06:01 500 mg Q6HR ROBBIE Administration Enoxaparin Sodium 30 mg 09/12/23 09:00 09/16/23 09:52 Enoxaparin Sodium 30 Mg/0.3 Ml Syr SUBCUT 30 mg DAILY ROBBIE Administration Acetaminophen 1,000 mg in 100 mls @ 400 mls/hr 09/11/23 08:17 09/11/23 18:06 Acetaminophen IV 400 mls/hr Q6HR PRN Administration Pain Insulin Human Regular 0 unit 09/14/23 11:35 09/16/23 06:15 Insulin Regular, Human 100 Unit/Ml (3ml) Vial SUBCUT 3 unit PRN PRN Administration Hyperglycemia Protocol Methylprednisolone Sodium Succinate 40 mg 09/13/23 23:00 09/16/23 05:32 Methylprednisolone Sod Succ/Pf 40 Mg/Ml Vial IVP 40 mg Q8HR ROBBIE Administration Ondansetron HCl 4 mg 09/10/23 20:56 Ondansetron Hcl/Pf 4 Mg/2 Ml Sdv IVP Q6H PRN Nausea / Vomiting Sodium Chloride 1 syr 09/10/23 14:41 09/15/23 20:58 0.9% Sodium Chloride 10 Ml Disp.Syrin IVF 1 syr PRN PRN Administration To flush IV Tamsulosin HCl 0.4 mg 09/15/23 16:00 09/16/23 09:52 Tamsulosin Hcl 0.4 Mg Cap.Er.24h PO 0.4 mg DAILY ROBBIE Administration Zinc Oxide 1 applic 09/13/23 21:19 09/15/23 20:57 Zinc Oxide 56.7 Gm Oint TP 1 applic Q1HR PRN Administration Rash Assessment (1) Oropharyngeal dysphagia: Status: Acute Code(s): R13.12 - Dysphagia, oropharyngeal phase SNOMED Code(s): 45769660 (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 Hypernatremia - Improving, down to 146 this am with D5W@125mL/hr, telemetry 3. ASHLEY - continue IVF, checking urine sodium and creatinine, bladder scan to r/o obstructive uropathy 4. Acute metabolic encephalopathy in setting of UTI - Improving, avoid neurologically altering agents if able, monitor for worsening 5. Hypokalemia - Resolved, replaced Review Statement Review Statement: I have personally discussed and reviewed the patient's visit/currently labs/imaging/decision making with Dr. Chu, my supervising attending. Greater that 50 minutes spent with patient, 50% of the time spent with this patient was devoted to counseling and coordination of care. Additional Additional Information: Bladder scan completed and showed >999 Multiple ro catheter attempts completed and unsuccessful with coude catheters. Contacted the following hospitals for transfer due to obstructive uropathy: [facility] - No urology coverage [facility] - Denied and recommended tertiary [place] [facility] [place]. [facility] the care of Dr. Price, Hospitalist and Dr. Capellan, Urology. Transportation arranged for ambulance transport at 10 pm
[2023-09-16 14:27] VITALS: BP 125/74; PULSE 73; TEMP 98.3
== END 2023-09-16 14:50 | disposition short-term general hospital (02) | DRG 689 ==
LOC: ED 14:33 → MEDSURG B 14:33 → OBSVTOIN 16:44 → MEDSURG B 17:11
PROVIDERS: ADMIT Nurse Practitioner Family; ATTEND Physician Assistant
DX: R41.82 Altered mental status, unspecified; N18.1 Chronic kidney disease, stage 1; R41.841 Cognitive communication deficit; E87.0 Hyperosmolality and hypernatremia; N13.9 Obstructive and reflux uropathy, unspecified; Z20.822 Contact with and (suspected) exposure to COVID-19; G93.41 Metabolic encephalopathy; N39.0 Urinary tract infection, site not specified; B96.4 Proteus (mirabilis) (morganii) as the cause of diseases classified elsewhere; E87.6 Hypokalemia; N10 Acute pyelonephritis; L30.9 Dermatitis, unspecified; I48.91 Unspecified atrial fibrillation; G24.4 Idiopathic orofacial dystonia; N13.4 Hydroureter; R13.12 Dysphagia, oropharyngeal phase; I10 Essential (primary) hypertension